=== PATIENT | male | born 1945 | race African-American/Black ===

== ENCOUNTER 2023-04-22 19:17 | Outpatient (RCR) | payer OTHER, SELFPAY | END 2023-04-22 23:59 | disposition home or self-care (01) | LOC: RPT 19:17 | PROVIDERS: ATTENDING PHYSICIAN Family Medicine | DX: M54.2 Cervicalgia (principal); Z73.6 Limitation of activities due to disability | CPT/HCPCS: 97010; 97110; 97112; 97162 ==

== ENCOUNTER 2023-04-23 03:08 | Observation (INO) | payer OTHER, SELFPAY ==
[2023-04-22 18:31] VITALS: BP 97/81
[2023-04-22 18:57] LABS: % Basophils 0.6 % (0-2); % Eosinophils 2.3 % (0-6); % Lymphocytes 42.5 % (20.5-51.1); % Monocytes 8.2 % (1.7-9.3); % Neutrophils 46.4 % (42.2-75.2); Absolute Eosinophils 0.1 10^3/uL (0-0.7); Absolute Lymphocytes 2.2 10^3/uL (1.2-3.4); Absolute Monocytes 0.4 10^3/uL (0.1-0.6); Absolute Neutrophils 2.4 10^3/uL (1.4-6.5); Hematocrit 38.8 % (39.0-52.0); Hemoglobin 12.3 g/dL (13.0-18.0); Mean Corp Hgb Conc. 31.7 g/dL (33.0-37.0); Mean Corpuscular Hgb 24.9 pg (27.0-31.0); Mean Corpuscular Volume 78.5 fL (80.0-94.0); Mean Platelet Volume 9.6 fL (7.4-10.4); Nucleated Red Blood Cells % 0 % (-); Platelet Count 161 10^3/uL (130-400); Red Blood Cell Count 4.94 10^6/uL (4.70-6.10); Red Cell Dist. Width 14.6 % (11.5-14.5); White Blood Cell Count 5.1 10^3/uL (4.8-10.8)
[2023-04-22 19:09] LABS: ALT (SGPT) 18 U/L (0-50); AST (SGOT) 30 U/L (17-59); Albumin 4.2 g/dl (3.5-5.0); Alkaline Phosphatase 69 U/L (38-126); Blood Urea Nitrogen 16 mg/dl (9-20); Calcium 10.1 mg/dl (8.4-10.2); Carbon Dioxide 31 mmol/L (22-30); Chloride 100 mmol/L (98-107); Glucose 82 mg/dl (70-99); Potassium 5.3 mmol/L (3.5-5.1); Sodium 140 mmol/L (135-145); Total Protein 7.8 g/dl (6.3-8.2); eGFR > 60.00
[2023-04-22 19:20] LABS: Troponin I 0.016 ng/ml
[2023-04-22 20:44] VITALS: BP 135/74
[2023-04-22 21:00] VITALS: BP 111/70
[2023-04-22 22:00] VITALS: BP 115/54
[2023-04-22 22:36] LABS: Troponin I 0.015 ng/ml
--- NOTE | 2023-04-22 22:53 | ED.GENMED ---
History of Present Illness
General
Chief Complaint: Chest Pain
Source: patient
Exam Limitations: none
Time Seen by Provider: 04/22/23 20:42
Nursing documentation reviewed up to this point in time: agreed with
Travel History
Have you had any contact with someone who has COVID-19?: No
Do you have any symptoms of coronavirus? Fever > 100 degrees, chills, cough, shortness of breath, sore throat, loss of taste or smell, muscle aches, or headache?: No
History of Present Illness
History of Present Illness:
77-year-old male with a past medical history of CAD status post CABG, diabetes who presents to the emergency department for evaluation of chest pain. Patient has been having left-sided neck pain for quite some time and has been doing physical
therapy for this. He was sent over today after an episode of chest pain and dizziness at physical therapy. He says that he has been having some exertional pressure in his chest for quite some time but may be slightly more often over the past week.
He is currently chest pain-free in the emergency room only complaint here is his chronic left neck pain. He denies any shortness of breath. Denies any palpitations. Denies any nausea, vomiting, diaphoresis. He denies any other complaints. He
says that his bypass surgery was a little over a year ago was performed in [place] when he was living there; he says that he has moved here and is supposed to follow-up with [facility] cardiology but has not yet seen a assembler fishing floats.
Review of Systems
Review of Systems
All Other Systems: ROS reviewed and negative except as documented in HPI and ROS
Constitutional: Denies fever or chills
EENT: Denies sore throat or runny nose
Respiratory: Denies cough or trouble breathing
Cardiac: Reports chest pain; Denies diaphoresis or palpitations
ABD/GI: Denies abdominal pain, nausea, vomiting or diarrhea
: Denies flank pain
Musculoskeletal: Reports neck pain; Denies back pain
Neurological: Reports dizzy; Denies headache, weakness or numbness
Phy Exam
Physical Exam
Physical Exam:
General: Awake, alert; no acute distress
Head: Normocephalic, atraumatic
Eyes: Conjunctiva normal, sclera anicteric
Throat: Airway intact, handling secretions
Neck: Trachea midline, supple without meningismus
Lungs: Clear to auscultation bilaterally, no wheezing, rales, rhonchi
Heart: Regular rate and rhythm, no murmurs, gallops, or rubs; midline chest scar from prior surgery
Abd: Soft, non distended, nontender
Neuro: Cranial nerves grossly intact, speech fluid
Skin: no rash
Extremities: No edema in extremities, equal pulses in all extremities
Scores
Heart Failure Risk
Heart Failure Risk Score: Not Applicable
Heart Score for Chest Pain Patients
STEMI patient?: No
History: Moderately Suspicious
ECG: Nonspecific Repolarization
Age: >/= 65 years
Risk Factors: >/= 3 Risk Factors or History of CAD
Troponin: </= Normal Limit
Heart Score for Chest Pain Patients: 6
Heart Score Risk: 20.3% MACE over next 6 weeks
Withdrawal Assessment of Alcohol
Withdrawal Assessment Completed?: Not applicable
Course
Orders/Labs/Results
Orders:
Orders
04/22/23 18:24
ECG [Electrocardiogram (*1)] Urgent
Reason for Study: Chest Pain
EKG- Treatment ONCE
04/22/23 18:50
Complete Blood Count/With Diff Urgent
Comprehensive Metabolic Panel Urgent
Troponin I Urgent
04/22/23 22:00
Troponin I Urgent
04/22/23 22:47
CR Chest - 2 Views Urgent
Comment:
Reason For Exam: chest pain
Abnormal Lab Results
04/22/23
18:50
Hgb 12.3 L g/dL
(13.0-18.0)
Hct 38.8 L %
(39.0-52.0)
MCV 78.5 L fL
(80.0-94.0)
MCH 24.9 L pg
(27.0-31.0)
MCHC 31.7 L g/dL
(33.0-37.0)
RDW 14.6 H %
(11.5-14.5)
Potassium 5.3 H mmol/L
(3.5-5.1)
Carbon Dioxide 31 H mmol/L
(22-30)
04/22/23 18:50
04/22/23 18:50
Vital Signs
Initial and Last Documented VS:
Initial Vital Signs
Temp Pulse Resp BP Pulse Ox
36.8 C 79 20 97/81 98
04/22/23 18:31 04/22/23 18:31 04/22/23 18:31 04/22/23 18:31 04/22/23 18:31
Last Documented Vital Signs
Temp Pulse Resp BP Pulse Ox
36.8 C 79 20 97/81 99
04/22/23 18:31 04/22/23 18:31 04/22/23 18:31 04/22/23 18:31 04/22/23 20:39
MDM/Problems Addressed
Differential Diagnosis Includes:
ACS/angina, cardiac dysrhythmia, costochondritis, less likely pneumonia or pneumothorax based on clinical history and exam
MDM/Problems Addressed:
77-year-old male with history as documented presents for evaluation of chest pain PT this evening that has since resolved. Was associated with some dizziness. He does state he has been having some exertional chest discomfort for quite some time
slightly worse over the past week. Only other complaint here is chronic left neck pain. Soft blood pressure 97/81 on vital signs otherwise normal. EKG shows no STEMI. Plan to place an IV check labs including a CBC and a CMP, serial troponins.
Will check a chest x-ray. Monitor closely reassess after the above.
Labs reviewed: CBC unremarkable, CMP shows marginal hyperkalemia. Troponins negative x 2. Patient remains well-appearing with reassuring vitals. HEART score 6. Case discussed with cardiology who recommended admission to hospital service they will
consult on patient in the morning. Case discussed with hospitalist for admission.
Chronic conditions affecting care:
History of CAD
*Radiology
Radiology exam reviewed: preliminary read by ED provider and radiology read reviewed
*Pulse Oximetry
Patient hypoxic: no
*EKG
Interpreted by ED Provider?: Yes
Heart Rate: 76
Rate: normal
Rhythm: sinus
[place]: left axis deviation
Interval: normal interval
QRS Pattern: right bundle branch block
Ischemia: non-specific ST changes
*Critical Care Note
Total Time (30-74mins, 75-104mins- exclusive of procedures): Not Applicable
Data Reviewed
Source: patient
Patient Management
Discussion with other providers: Hospitalist (Discussed with hospitalist) and Scowman (Discussed with cardiology)
Escalation/DeEscalation of care consider admission/obs:
Admission indicated
ED Attending Note
-
Portions of this chart may have been created with voice recognition software.� Occasional wrong word or��sound alike� substitutions may have occurred due to the inherent limitations of voice recognition software.
Discharge Plan
Departure
Admit to doctor: Charles
Presentation/result/management discussed w/ accepting MD/DO: Hospitalist
Discharge Problem:
Chest pain
Prescriptions:
No Action
clindamycin HCl 300 mg capsule
300 mg PO Q8H 7 Days Qty: 21 0RF
Referrals:
Haris Marie DO [Family Provider] -
Interventions
Interventions:
*Risk Screen - Suicide Last Done: 04/22/23 18:31
*General Assessment Last Done: 04/22/23 18:31
*Neglect/Abuse Screening Last Done: 04/22/23 18:31
ED- Fall Risk Assessment Last Done: 04/22/23 20:39
*ED COVID-19 Vaccine History Last Done: 04/22/23 20:39
ED- Cardiac Assessment Last Done: 04/22/23 20:39
[2023-04-22 23:00] VITALS: BP 127/66
[2023-04-23] VITALS (13 sets, daily range): BP systolic 102–152; BP diastolic 54–91
[2023-04-23] MEDS: LOW STRENGTH ASPIRIN 324 MG PO (00:01)
--- NOTE | 2023-04-23 02:25 | HPS.HSE ---
Addendum entered and electronically signed by Jorge Soto DO 04/23/23 03:35:
Exact nature of patient's open heart surgery is unclear. From CXR, it appears he had a L atrial appendage closure device placed.
Unknown if he also had bypass grafting done at that time.
When patient is asked what surgery he had performed, he simply gestures to / indicates his midline sternotomy and can provide no other details.
Original Note:
Family Physician
-
Family Physician: Haris Marie,
Chief Complaint
-
Irregular heart beat
History of Present Illness
Patient is a 77y M with PMH significant for ASCVD, DM-II and hypertension who presents to ED for evaluation of irregular heart beat. Patient states that he was at physical therapy earlier today (for left rotator cuff pathology) and was advised
that his heart rate was irregular. He was told he should present to the ED for evaluation.
Patient has prior history of CAD and is s/p open heart surgery (not clear what was done) April 2022 in [place].
Patient admits to some chest discomfort that is worse with certain movement. He indicates that this seems related to 'growth' at the site of his prior surgery.
He denies any palpitations, cough, fevers / chills, SOB, etc.
He is currently resting comfortably.
He has not yet seen a Avionics Systems Engineer in the [place] area since relocating.
Medical History
Past Medical History
Past Medical History: Reports Other
Additional Past Medical History:
ASCVD
DM-II
Hypertension
Past Surgical History: Reports Other
Additional Past Surgical History:
Midline Sternotomy / CABG?
Right CHRISTIANA
Left TKA
Social History
Tobacco: Non-smoker
Alcohol: None
Drug: None
Family History
Family History: Not pertinent
Allergies / Home Medications
Allergies reflects when Allergies were last updated in [facility].
Home Medications with original date entered in [facility]
Allergy/Medication List:
Allergies
Allergy/AdvReac Type Severity Reaction Status Date / Time
cefuroxime [From Ceftin] Allergy Unknown Verified 04/22/23 18:31
Home Medications
aspirin 81 mg tablet,delayed release 81 mg PO DAILY 04/23/23
insulin glargine 100 unit/mL subcutaneous solution (Lantus U-100 Insulin) 15 unit SC DAILY 04/23/23
losartan 50 mg tablet 40 mg PO DAILY 04/23/23
metformin 1,000 mg tablet 1,000 mg PO BID 04/23/23
metoprolol tartrate 25 mg tablet 25 mg PO BID 04/23/23
sitagliptin phosphate 100 mg tablet (Januvia) 100 mg PO DAILY 04/23/23
Review of Systems
-
History Source: Patient
A 12 point ROS was completed and negative except as noted: Yes
Constitutional: Denies Fever, Fatigue or Chills
EENT: Denies Sore Throat
Respiratory: Reports Trouble Breathing (occasionally with exertion); Denies Cough
Cardiac: Reports Chest Pain (discomfort with movement at sternotomy site.); Denies Palpitations or Syncope
Abdomen/GI: Denies Abdominal Pain, Nausea, Vomiting or Diarrhea
: Denies Dysuria, Frequency or Flank Pain
Musculoskeletal: Reports Joint Pain (L shoulder pain / decreased ROM.); Denies Edema
Neurological: Denies Dizzy or Headache
Psych: Denies Depression or Anxiety
Physical Exam
Vital Signs
Vital Signs
Temp Pulse Resp BP Pulse Ox
98.3 F 70 19 119/70 99
04/22/23 18:31 04/23/23 00:15 04/23/23 00:15 04/23/23 00:03 04/23/23 00:15
Physical Exam
General: Other (77y M in no distress.)
HEENT: Moist mucous membranes and PERRLA
Respiratory: Other (Few bibasilar rales. No wheeze/ rhonchi.)
Cardiac: S1/S2 and Regular Rhythm (with ectopy.); No Murmur
GI: Soft, Non Tender, Non Distended and Normal Bowel Sounds
Musculoskeletal: No Clubbing, No Cyanosis and No Edema
Skin: Other (mild keloid formation over midline sternotomy site.)
Neuro: AO x 3
Laboratory Results
-
04/22/23 18:50
04/22/23 18:50
Laboratory Results
Total Bilirubin 1.0 mg/dl (0.2-1.3) 04/22/23 18:50
AST 30 U/L (17-59) 04/22/23 18:50
ALT 18 U/L (0-50) 04/22/23 18:50
Alkaline Phosphatase 69 U/L (38-126) 04/22/23 18:50
Troponin I 0.015 ng/ml 04/22/23 22:00
Impression/Plan
-
A/P: Patient is a 77y M with PMH significant for open heart surgery who presented to ED for evaluation of abnormal heart beat.
Irregular Heart Beat
- Observe overnight for further evaluation and treatment.
- EKG / tele show sinus rhythm with PACs.
- No significant arrhythmia.
- Monitor on tele for any additional abnormality.
- Continue metoprolol.
- Cardiology evaluation in the AM.
ASCVD
Chest Pain
- Patient complains of intermittent chest discomfort / 'pulling' at the sternotomy site which he relates to the formation of a keloid in that area.
- EKG without ischemic changes.
- Troponin is unremarkable x 2 sets thus far.
- Does not seem suspicious for ACS.
- Continue current CV med regimen.
- Check repeat troponin in AM to complete series.
- Cardiology evaluation as noted above.
Benign Hypertension
- Stable. Continue current meds and adjust as needed.
DM-II
- Stable. Continue basal : bolus insulin regimen.
- Hold PO meds acutely.
- Cover with SSI as needed.
- Update A1C.
Left Rotator Cuff Pathology
- Referred to PT as an outpatient.
- Resume treatment upon discharge.
DVT Prophylaxis: Lovenox
Code Status: Full
[2023-04-23 06:39] LABS: Hematocrit 34.4 % (39.0-52.0); Hemoglobin 11.2 g/dL (13.0-18.0); Mean Corp Hgb Conc. 32.6 g/dL (33.0-37.0); Mean Corpuscular Hgb 25.2 pg (27.0-31.0); Mean Corpuscular Volume 77.3 fL (80.0-94.0); Mean Platelet Volume 10.1 fL (7.4-10.4); Platelet Count 144 10^3/uL (130-400); Red Blood Cell Count 4.45 10^6/uL (4.70-6.10); Red Cell Dist. Width 14.6 % (11.5-14.5); White Blood Cell Count 3.5 10^3/uL (4.8-10.8)
[2023-04-23 06:45] LABS: Blood Urea Nitrogen 17 mg/dl (9-20); Carbon Dioxide 32 mmol/L (22-30); Chloride 101 mmol/L (98-107); Glucose 109 mg/dl (70-99); HDL Cholesterol 58 mg/dl; Iron 89 ug/dl (49-181); LDL Cholesterol, Calculated 112 mg/dl; Sodium 137 mmol/L (135-145); Total Cholesterol 189 mg/dl (50-199); Triglyceride 97 mg/dl (10-149); Very Low Density Lipoprotein 19 mg/dl (0-30); eGFR > 60.00
[2023-04-23 06:48] LABS: Troponin I < 0.012 ng/ml
[2023-04-23 06:54] LABS: Percent Saturation 29 % (20-50); Total Iron Binding Capacity 306 ug/dl (261-462)
[2023-04-23 08:12] LABS: Glucose - Point of Care 112 mg/dl (70-99)
--- NOTE | 2023-04-23 08:12 | CON.CAR ---
Consultation
Consultation Request
Date/Time Consultation Requested: Apr 23, 2023 0113
Date/Time Consultation Performed: Apr 23, 2023 0800
Requesting Provider: Hospitalist
Performing Provider: vega rivera
Reason for Consultation: irregular HB
Medical History
-
Chief Complaint: irreg HB
History of Present Illness:
77-year-old male with past medical history of hypertension, CAD status post CABG, hyperlipidemia, and diabetes who is here today for evaluation of irregular heartbeat. He tells me that he was at the physical therapy office and when they got his
vital signs he was noted to have an irregular heartbeat. It appears that they were concerned for atrial fibrillation and they sent him to the emergency room. In the emergency room he was found to have sinus rhythm with frequent PACs. There was
confusion about possible chest pain and troponins have been negative. In further conversation he had a CABG done in [place] and his symptoms at that time were of heartburn. Since his open heart surgery he has not had return of the symptoms.
Additionally, he overall tells me he otherwise feels well and denies any significant symptoms of ischemia, heart failure, or other arrhythmia. He denies any passing out or chest discomfort with exertion. He tells me he lives with his daughter and
. He does have an appointment with Dr. Ulloa on May 18, 2023.
Past Medical History
Past Medical History: Other (hypertension, CAD status post CABG, hyperlipidemia, and diabetes)
Past Surgical History: Other (CABG)
Social History
Tobacco: Non-Smoker
Alcohol: None
Drug: None
Living: With Family
Employment: Retired
Family History
Family History: Reviewed & Not Pertinent
Allergies / Home Medications
Allergy/AdvReac Type Severity Reaction Status Date / Time
cefuroxime [From Ceftin] Allergy Unknown Verified 04/22/23 18:31
Medication Instructions Recorded Confirmed Type
aspirin 81 mg tablet,delayed 81 mg PO DAILY 04/23/23 04/23/23 History
release
insulin glargine 100 unit/mL 15 unit SC DAILY 04/23/23 04/23/23 History
subcutaneous solution (Lantus
U-100 Insulin)
losartan 50 mg tablet 40 mg PO DAILY 04/23/23 04/23/23 History
metformin 1,000 mg tablet 1,000 mg PO BID 04/23/23 04/23/23 History
metoprolol tartrate 25 mg tablet 25 mg PO BID 04/23/23 04/23/23 History
sitagliptin phosphate 100 mg 100 mg PO DAILY 04/23/23 04/23/23 History
tablet (Januvia)
Review of Systems
-
All other systems: Negative unless noted
Physical Exam
Vital Signs
Temp Pulse Resp BP Pulse Ox
98.3 F 72 15 103/54 100
04/22/23 18:31 04/23/23 06:15 04/23/23 06:15 04/23/23 06:00 04/23/23 06:15
Lab Results
04/23/23 06:07
04/23/23 06:07
Troponin I < 0.012 ng/ml 04/23/23 06:07
Physical Exam
General: Well Developed, No Apparent Distress and Comfortable
HEENT: Normocephalic
Respiratory: Clear and Non Labored Respirations
Cardiac: Regular Rhythm and Other (no m/r/g)
GI: Soft
Musculoskeletal: No Cyanosis and No Edema
Skin: Warm and Dry
Neuro: AO x 3
Psych: Calm
Impression / Plan
-
77-year-old male with past medical history of hypertension, CAD status post CABG, hyperlipidemia, and diabetes who is here today for evaluation of irregular heartbeat. He appears to have sinus rhythm with frequent PACs. He otherwise has no
complaints of ischemia, heart failure, or arrhythmia. He overall feels well and when asked about chest pain he points to his scar and what appears to be a keloid on his chest. He otherwise has no symptoms of burning which was associated with his
coronary artery disease in the past. He needs no further testing, but should be started on atorvastatin 40mg at this time. He has follow up with Dr Ulloa on May 18, 2023.
CAD status post CABG unknown targets
-Continue aspirin he should be on atorvastatin 40 mg
-Continue metoprolol tartrate 25 twice daily
Hypertension
-Continue losartan and metoprolol
Hyperlipidemia
-Start atorvastatin 40 daily
Diabetes per primary consider SGLT2 inhibitor
Data Reviewed
-
EKG: Tracing Personally Visualized and interpreted and Discussed with Patient
Labs: Labs Reviewed by me
[2023-04-23] MEDS: LOPRESSOR 25 MG PO (08:40)
[2023-04-23] MEDS: ASPIR LOW (ENTERIC COATED) 81 MG PO (08:40)
[2023-04-23] MEDS: JANUVIA 100 MG PO (08:42)
[2023-04-23] MEDS: COZAAR 50 MG PO (08:47)
--- NOTE | 2023-04-23 09:14 | PHANOTE ---
Addendum entered by German Madsen 04/23/23 09:26:
04/23/2023, med rec [facility], pt.'s daughter states that pt. is also taking Amlodipine 10 mg daily but this med. in not in pt.'s pharmacy fill data and pt. has no [facility] records to confirm.
Original Note:
04/23/2023, med rec [facility], spoke to pt. and pt.'s daughter to compile pt.'s home med. list; pt. states to be taking Losartan daily but does not know the strength; called pt.'s pharmacy and they state that pt. never picked his Losartan up with
direction of taking half of a Losartan 25 mg (12.5 mg) daily. Pt.'s pharmacy states that this med. has been on hold since October 2022.
[2023-04-23 09:32] LABS: Glycohemoglobin (HgbA1c) 7.8 % (4.0-5.6)
--- NOTE | 2023-04-23 12:34 | W.PN.HOSP.TC ---
Addendum entered and electronically signed by Boubacar Green MD 04/24/23 17:13:
[id number]
Original Note:
Today's Communication/Plan
-
add statin
f/u pcp, cards, cardiothoracic surgery outpatient
Assessment / Plan
Assessment / Plan
Physical Exam
General: Other (77y M in no distress.)
HEENT: Moist mucous membranes and PERRLA
Respiratory: Other (Few bibasilar rales.� No wheeze/ rhonchi.)
Cardiac: S1/S2 and Regular Rhythm (with ectopy.); No Murmur
GI: Soft, Non Tender, Non Distended and Normal Bowel Sounds
Musculoskeletal: No Clubbing, No Cyanosis and No Edema
Skin: Other (mild keloid formation over midline sternotomy site.)
Neuro: AO x 3
A/P:� Patient is a 77y M with PMH significant for open heart surgery who presented to ED for evaluation of abnormal heart beat.
Irregular Heart Beat
-Frequent PACs
-F/u cardiology outpatient
-Cards consulted
CAD s/p CABG
Chest Pain
-chest pain most likely sternal pain from sternotomy site
-Cont asa, BB
-Add statin
�- Cardiology evaluation as noted above.
Benign Hypertension
�- Stable.� Continue current meds and adjust as needed.
DM-II
�- SGLT2i as per cards and pcp outpatient
Left Rotator Cuff Pathology
�- Referred to PT as an outpatient.
�- Resume treatment upon discharge.
DVT Prophylaxis:� Lovenox
Code Status:� Full
More than 30 minutes spent in discharge including
Final examination of the patient
Summarizing hospital stay
Instructions for continuing care to all relevant caregivers
Preparation of discharge records, prescriptions, and referral forms
Total time spent (35 in minutes):
Anticipated Discharge: Today
Subjective/Interval History
-
Date of Service: April 23, 2023
no changes, acute events
Objective Data
-
Labs:
Laboratory Results
04/23/23
06:07
WBC 3.5 L
Hgb 11.2 L
Hct 34.4 L
Plt Count 144
Sodium 137
Potassium 4.0
Chloride 101
Carbon Dioxide 32 H
BUN 17
Creatinine 0.6 L
Glucose 109 H
Calcium 9.0
Vital Signs:
Vital Signs
Temp Pulse Resp BP Pulse Ox
98.1 F 83 18 147/85 98
04/23/23 08:39 04/23/23 08:39 04/23/23 08:39 04/23/23 08:39 04/23/23 09:58
Review of Systems
-
History Source: Patient
All other systems: Not reviewed unless documented
Data Reviewed
-
Diagnostic Radiology: Image personally visualized and interpreted and Report Reviewed by me
Labs: Labs Reviewed by me
--- NOTE | 2023-04-23 12:39 | W.DS.TRANS ---
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
-
Discharge Instructions:
Discharge Diagnosis/Procedures Frequent PACs
Diet Low Cholesterol,Low Fat
Activity As tolerated
Instructions:
Stand-Alone Forms:
Changes to Home Medications: Yes
Discharge Medications:
DC Medications w/original date entered in [facility]
amlodipine 10 mg tablet 10 mg PO DAILY #0 tabs 04/23/23
aspirin 81 mg tablet,delayed release 81 mg PO DAILY 04/23/23
insulin glargine 100 unit/mL (3 mL) subcutaneous pen (Lantus Solostar U-100 Insulin) 15 unit SC HS 04/23/23
losartan 25 mg tablet 12.5 - 25 mg PO DAILY 04/23/23
losartan 50 mg tablet 50 mg PO DAILY #0 tabs 04/23/23
metformin 1,000 mg tablet 1,000 mg PO DAILY 04/23/23
metoprolol tartrate 25 mg tablet 25 mg PO .*SEE BELOW 04/23/23
rosuvastatin 40 mg tablet 40 mg PO DAILY 04/23/23
sitagliptin phosphate 100 mg tablet (Januvia) 100 mg PO DAILY 04/23/23
tamsulosin 0.4 mg capsule 0.4 mg PO QPM 04/23/23
Home Medication Changes
rosuvastatin 40 mg tablet 40 mg PO DAILY 04/23/23
Pending Results: No
== END 2023-04-23 13:47 | disposition home or self-care (01) ==
LOC: ED 03:08
PROVIDERS: Student in an Organized Health Care Education/Training Program; ADMITTING PHYSICIAN Hospitalist; ATTENDING PHYSICIAN Internal Medicine; EMERGENCY PHYSICIAN Emergency Medicine; FAMILY PHYSICIAN Family Medicine; OTHER PHYSICIAN Internal Medicine Cardiovascular Disease
DX: I49.1 Atrial premature depolarization (principal); R07.9 Chest pain, unspecified; I25.119 Atherosclerotic heart disease of native coronary artery with unspecified angina pectoris; E11.9 Type 2 diabetes mellitus without complications; M54.2 Cervicalgia; E78.5 Hyperlipidemia, unspecified; R42 Dizziness and giddiness; E87.5 Hyperkalemia; I10 Essential (primary) hypertension; Z79.82 Long term (current) use of aspirin; Z79.4 Long term (current) use of insulin; Z79.84 Long term (current) use of oral hypoglycemic drugs; Z95.1 Presence of aortocoronary bypass graft
CPT/HCPCS: 71046; 80048; 80053; 80061; 82962; 83036; 83540; 83550; 84484; 85025; 85027; 93005; 99285; G0378

== ENCOUNTER → 2023-05-27 06:23 | Day surgery (SDC) | payer OTHER, SELFPAY ==
[2023-05-27 08:12] LABS: Glucose - Point of Care 112 mg/dl (70-99)
== END ==
LOC: GI 06:23
PROVIDERS: ATTENDING PHYSICIAN Surgery
DX: Z12.11 Encounter for screening for malignant neoplasm of colon (principal); K64.9 Unspecified hemorrhoids
CPT/HCPCS: 45378; 82962

== ENCOUNTER → 2023-06-10 16:53 | Outpatient (REF) | payer OTHER, SELFPAY | LOC: RCS 16:53 | PROVIDERS: ATTENDING PHYSICIAN Internal Medicine; FAMILY PHYSICIAN Family Medicine | DX: I25.810 Atherosclerosis of coronary artery bypass graft(s) without angina pectoris (principal) | CPT/HCPCS: 93306 ==

== ENCOUNTER → 2023-09-14 11:08 | Outpatient (REF) | payer OTHER, SELFPAY | LOC: RAD 11:08 | PROVIDERS: ATTENDING PHYSICIAN Family Medicine | DX: M54.2 Cervicalgia (principal); M25.512 Pain in left shoulder | CPT/HCPCS: 72052; 73030 ==

== ENCOUNTER 2023-09-23 09:13 | Outpatient (RCR) | payer OTHER, SELFPAY | END 2023-09-23 23:59 | disposition home or self-care (01) | LOC: RPT 09:13 | PROVIDERS: ATTENDING PHYSICIAN Family Medicine | DX: M54.2 Cervicalgia (principal); M25.512 Pain in left shoulder | CPT/HCPCS: 97010; 97110; 97140; 97162 ==

== ENCOUNTER 2023-10-14 09:18 | Outpatient (RCR) | payer OTHER, SELFPAY | END 2023-10-14 12:39 | disposition home or self-care (01) | LOC: RPT 09:18 | PROVIDERS: ATTENDING PHYSICIAN Family Medicine | DX: M54.2 Cervicalgia (principal); M25.512 Pain in left shoulder; Z73.6 Limitation of activities due to disability | CPT/HCPCS: 97010; 97110; 97140 ==

== ENCOUNTER 2023-12-19 12:40 | Emergency (ER) | payer OTHER, SELFPAY ==
[2023-12-19 12:45] VITALS: BP 143/79
[2023-12-19 13:02] LABS: Glucose - Point of Care 219 mg/dl (70-99)
[2023-12-19 14:03] VITALS: BP 126/69
[2023-12-19 14:24] LABS: % Basophils 0.6 % (0-2); % Eosinophils 2.3 % (0-6); % Immature Granulocytes 0.2 % (0-0.5); % Lymphocytes 33.8 % (20.5-51.1); % Monocytes 8.1 % (1.7-9.3); Absolute Eosinophils 0.1 10^3/uL (0-0.7); Absolute Lymphocytes 1.6 10^3/uL (1.2-3.4); Absolute Monocytes 0.4 10^3/uL (0.1-0.6); Absolute Neutrophils 2.7 10^3/uL (1.4-6.5); Hematocrit 39.2 % (39.0-52.0); Hemoglobin 12.6 g/dL (13.0-18.0); Mean Corp Hgb Conc. 32.1 g/dL (33.0-37.0); Mean Corpuscular Volume 77.6 fL (80.0-94.0); Mean Platelet Volume 9.5 fL (7.4-10.4); Nucleated Red Blood Cells % 0 % (-); Platelet Count 164 10^3/uL (130-400); Red Blood Cell Count 5.05 10^6/uL (4.70-6.10); Red Cell Dist. Width 14.2 % (11.5-14.5); White Blood Cell Count 4.8 10^3/uL (4.8-10.8)
[2023-12-19 14:39] LABS: ALT (SGPT) 25 U/L (0-50); AST (SGOT) 34 U/L (17-59); Albumin 4.8 g/dl (3.5-5.0); Alkaline Phosphatase 49 U/L (38-126); Blood Urea Nitrogen 17 mg/dl (9-20); Calcium 9.9 mg/dl (8.4-10.2); Carbon Dioxide 33 mmol/L (22-30); Chloride 100 mmol/L (98-107); Glucose 158 mg/dl (70-99); Potassium 4.3 mmol/L (3.5-5.1); Sodium 142 mmol/L (135-145); Total Protein 7.7 g/dl (6.3-8.2); eGFR > 60.00
[2023-12-19 14:51] LABS: NT-proBNP 313 pg/ml; Troponin I 0.022 ng/ml
[2023-12-19 15:00] VITALS: BP 95/79
--- NOTE | 2023-12-19 16:41 | ED.GENMED ---
History of Present Illness
General
Chief Complaint: Musculo-Skeletal Complaint
Source: patient
Exam Limitations: none
Time Seen by Provider: 12/19/23 15:05
Nursing documentation reviewed up to this point in time: agreed with
History of Present Illness
History of Present Illness:
Patient presents to emergency department secondary to 2 separate complaints. 1, patient reports intermittent left upper arm pain ongoing for months, which he describes as stabbing periodically. 2, patient's main presentation and complaint, which
is fluctuation in his blood sugar, noted by his glucometer, which was recently given to him by his primary care physician. Patient has questions about how the glucometer is being used, but his primary care physician referred him to ED for further
evaluation. Otherwise, patient has no additional complaints. Denies chest pain, shortness of breath, nausea, vomiting, or diarrhea. Denies recent illness. Denies fever or chills. Denies recent change in medications or diet.
Review of Systems
Review of Systems
Allergies reviewed?: Yes
All Other Systems: ROS reviewed and negative except as documented in HPI and ROS
Constitutional: Reports no symptoms
Respiratory: Reports no symptoms
Cardiac: Reports no symptoms
ABD/GI: Reports no symptoms
: Reports no symptoms
Musculoskeletal: Reports no symptoms
Skin: Reports no symptoms
Neurological: Reports no symptoms
Phy Exam
Physical Exam
Physical Exam:
Physical Exam
General: no apparent distress, not acutely ill. afebrile.
Head: nc/at. eomi
Neck: supple. no meningeal signs.
Heart: s1/s2 regular rate and rhythm, no murmur. equal radial pulses.
Lungs: no acute respiratory distress. clear bilaterally
Abdomen: normal bowel sounds. not tender.
Neuro: alert and oriented. no focal neurological deficits
Skin: no rash
Psychiatric: well kept. interactive and cooperative
Extremities: no edema. no calf tenderness. LUE - nontender to palpation, no deformity noted.
Course
Orders/Labs/Results
Orders:
Orders
12/19/23 12:50
EKG [Electrocardiogram (*1)] Urgent
Reason for Study: Chest Pain
EKG- Treatment ONCE
12/19/23 14:07
Visual Acuity- Treatment ONCE
12/19/23 14:12
Complete Blood Count/With Diff Urgent
Comprehensive Metabolic Panel Urgent
Pro-BNP [NT-proBNP] Urgent
Troponin I Urgent
Abnormal Lab Results
12/19/23 12/19/23
13:00 14:12
Hgb 12.6 L g/dL
(13.0-18.0)
MCV 77.6 L fL
(80.0-94.0)
MCH 25.0 L pg
(27.0-31.0)
MCHC 32.1 L g/dL
(33.0-37.0)
Carbon Dioxide 33 H mmol/L
(22-30)
Glucose 158 H mg/dl
(70-99)
POC Glucose 219 H mg/dl
(70-99)
12/19/23 14:12
12/19/23 14:12
Vital Signs
Initial and Last Documented VS:
Initial Vital Signs
Temp Pulse Resp BP Pulse Ox
98.3 F 77 16 143/79 98
12/19/23 12:45 12/19/23 12:45 12/19/23 12:45 12/19/23 12:45 12/19/23 12:45
Last Documented Vital Signs
Temp Pulse Resp BP Pulse Ox
98.3 F 67 14 95/79 96
12/19/23 12:45 12/19/23 15:45 12/19/23 15:45 12/19/23 15:00 12/19/23 15:45
MDM/Problems Addressed
MDM/Problems Addressed:
Patient with an unremarkable workup in ED and remains comfortable, without any distress during extended course of observation. Patient states that he already has an appointment with his corporate sales representative in the upcoming weeks, with whom he will
follow-up. Upper extremity intermittent sensation, likely musculoskeletal in etiology. No further workup indicated at this time.
Patient will be given information for life skills educator at [facility], but discussed his fluctuating blood sugar as well as use of the glucometer. Patient expresses understanding at time of discharge.
*Critical Care Note
Total Time (30-74mins, 75-104mins- exclusive of procedures): Not Applicable
ED Attending Note
-
Portions of this chart may have been created with voice recognition software.� Occasional wrong word or��sound alike� substitutions may have occurred due to the inherent limitations of voice recognition software.
Discharge Plan
Departure
Patient Disposition: Home (Routine Discharge)
Date of Disposition: 12/19/23
Time of Disposition: 16:46
Patient with high blood pressure during this ER visit?: Yes
Condition: Good
Discharge Problem:
Arm pain, Hyperglycemia
Instructions: High Blood Sugar, Adult ED, Muscle and bone pain - Discharge instructions
Prescriptions:
No Action
aspirin 81 mg Tablet,Delayed Release (Dr/Ec)
81 mg PO DAILY
metformin 1,000 mg Tablet
1,000 mg PO DAILY
metoprolol tartrate 25 mg Tablet
25 mg PO .*SEE BELOW
Patient Comments:
04/23/2023, pt. unsure if he takes this med. once or twice a day; this med. is prescribed to be taken BID.
Januvia 100 mg Tablet
100 mg PO DAILY
tamsulosin 0.4 mg Capsule
0.4 mg PO QPM
rosuvastatin 40 mg Tablet
40 mg PO DAILY
insulin glargine [Lantus Solostar U-100 Insulin] 100 unit/mL (3 mL) Insulin Pen
15 unit SC HS
losartan 25 mg Tablet
12.5 - 25 mg PO DAILY
Patient Comments:
04/23/2023, last filled on 08/03/2022 for 30 tablets.
losartan 50 mg Tablet
50 mg PO DAILY Qty: 0 0RF
amlodipine 10 mg Tablet
10 mg PO DAILY Qty: 0 0RF
Patient Comments:
04/23/2023, per daughter, pt. takes this med. daily; however, I'm unable to find this med. in pharmacy fill data and pt. has no [facility] records.
Rx Instructions:
take only if was taking prior
Referrals:
Haris Marie DO [Family Provider] -
Nidia Crabtree NP [Specified Professional Personl] -
Activity Restrictions/Additional Instructions:
As discussed, please follow-up with your primary care physician, as well as referred life skills educator for further evaluation and treatment.
Interventions
Interventions:
*Risk Screen - Suicide Last Done: 12/19/23 12:45
*General Assessment Last Done: 12/19/23 12:45
*Neglect/Abuse Screening Last Done: 12/19/23 12:45
ED- Fall Risk Assessment Last Done: 12/19/23 16:56
*ED COVID-19 Vaccine History Last Done: 12/19/23 13:52
*Nursing Disposition Last Done: 12/19/23 16:56
ED-Musculoskeletal Assessment Last Done: 12/19/23 14:15
Discharge Date and Time
Discharge Date/Time: 12/19/23 17:00
Print Language: TAJIK
== END 2023-12-19 17:00 | disposition home or self-care (01) ==
LOC: EMR 12:40
PROVIDERS: Emergency Medicine; EMERGENCY PHYSICIAN Emergency Medicine; FAMILY PHYSICIAN Family Medicine
DX: M79.622 Pain in left upper arm (principal); E11.65 Type 2 diabetes mellitus with hyperglycemia; Z79.84 Long term (current) use of oral hypoglycemic drugs
CPT/HCPCS: 99284; 80053; 82962; 83880; 84484; 85025; 93005

== ENCOUNTER → 2023-12-30 10:48 | Outpatient (REF) | payer OTHER, SELFPAY ==
--- NOTE | 2023-12-30 12:24 | PN.DE ---
Diabetes Education
- -
12/30/2023 Diabetes Education
Patient was recently in Emergency Department, 12/21 for 2 complaints: #1 pain in upper arm for months, #2 his main complaint was fluctuating blood sugars noted by his glucose monitor (CGM). At that time he was referred to diabetes education as he
had questions about his diabetes. Patient is unsure of what he needs. He is somewhat difficult to understand but is able to get his point across. He brought a bag of medications. For his diabetes he is prescribed 15 units of lantus @ [facility]
100 mg daily, metformin 1000 mg BID. His CGM shows a glucose of 357 at the time of our visit. He is frustrated as he does not know why this is happening. I did discuss with him what he had eaten for breakfast, he states rice beans and vegetables.
Since he does have a primary doctor, Haris Marie, I suggested he speak with Dr. Marie about the high glucose after meals. He stated: Just call him now so we can discuss it.
I did call the office and spoke to Lanny the nurse at Dr. Mauro office. She was able to review the chart and states patient A1C has gone from 7.5 to 8.2%. He was instructed by the doctor to have nutrition counseling. The nurse also stated
that Dr. Mauro note indicates he would consider Jardiance of Ozempic for patient, whichever he prefers. We discussed it over the phone with the nurse and he chose Ozempic once per week.
I reviewed with patient how to navigate the CGM to see his reports. For past 7 days 9% of the time is reported as very high, 27% high, 64% in range, NO low blood sugars. I also assessed the range in the set up was 70 to 250. I did change the
upper limit to 200.
I have asked Brie Francois RD to call patient to set up an individual appointment for nutrition counseling. Patient will wait to hear from Dr. Marie or Lanny the nurse regarding starting Ozempic.
Patient was very appreciative of learning how to navigate the CGM.
== END ==
LOC: DES 10:48
PROVIDERS: ATTENDING PHYSICIAN Family Medicine
DX: E11.65 Type 2 diabetes mellitus with hyperglycemia (principal)
CPT/HCPCS: 99078

== ENCOUNTER → 2024-01-23 10:40 | Outpatient (REF) | payer OTHER, SELFPAY | LOC: RCS 10:40 | PROVIDERS: ATTENDING PHYSICIAN Internal Medicine | DX: I49.1 Atrial premature depolarization (principal) | CPT/HCPCS: 93225; 93226 ==

== ENCOUNTER → 2024-03-01 07:43 | Outpatient (REF) | payer OTHER, SELFPAY | LOC: DHCBC/DCA 07:43 | PROVIDERS: ATTENDING PHYSICIAN Internal Medicine; FAMILY PHYSICIAN Family Medicine | DX: R00.2 Palpitations (principal); I45.10 Unspecified right bundle-branch block; I49.1 Atrial premature depolarization; I25.810 Atherosclerosis of coronary artery bypass graft(s) without angina pectoris; R09.89 Other specified symptoms and signs involving the circulatory and respiratory systems; E66.3 Overweight | CPT/HCPCS: 78452; 93017; A9500; J2785 ==

== ENCOUNTER 2024-03-08 06:39 | Day surgery (SDC) | payer OTHER, SELFPAY ==
[2024-02-18 10:07] VITALS: BMI 25.3
[2024-02-18 10:43] LABS: % Basophils 0.6 % (0-2); % Eosinophils 0.6 % (0-6); % Immature Granulocytes 0.2 % (0-0.5); % Lymphocytes 21.6 % (20.5-51.1); % Monocytes 4.8 % (1.7-9.3); % Neutrophils 72.2 % (42.2-75.2); Absolute Lymphocytes 1.2 10^3/uL (1.2-3.4); Absolute Monocytes 0.3 10^3/uL (0.1-0.6); Absolute Neutrophils 3.9 10^3/uL (1.4-6.5); Hematocrit 39.4 % (39.0-52.0); Hemoglobin 12.3 g/dL (13.0-18.0); Mean Corp Hgb Conc. 31.2 g/dL (33.0-37.0); Mean Corpuscular Hgb 25.4 pg (27.0-31.0); Mean Corpuscular Volume 81.2 fL (80.0-94.0); Mean Platelet Volume 10.3 fL (7.4-10.4); Nucleated Red Blood Cells % 0 % (-); Platelet Count 170 10^3/uL (130-400); Red Blood Cell Count 4.85 10^6/uL (4.70-6.10); Red Cell Dist. Width 14.5 % (11.5-14.5); White Blood Cell Count 5.4 10^3/uL (4.8-10.8)
[2024-02-18 11:03] LABS: ALT (SGPT) 31 U/L (0-50); AST (SGOT) 43 U/L (17-59); Albumin 4.4 g/dl (3.5-5.0); Alkaline Phosphatase 64 U/L (38-126); Blood Urea Nitrogen 19 mg/dl (9-20); Calcium 9.3 mg/dl (8.4-10.2); Carbon Dioxide 30 mmol/L (22-30); Chloride 97 mmol/L (98-107); Estimated Creatinine Clearance 66 ml/min; Glucose 208 mg/dl (70-99); Potassium 4.4 mmol/L (3.5-5.1); Sodium 135 mmol/L (135-145); Total Bilirubin 0.9 mg/dl (0.2-1.3); Total Protein 7.2 g/dl (6.3-8.2); eGFR > 60.00
--- NOTE | 2024-02-18 11:09 | HPS.HSE ---
Family Physician
-
Family Physician: Haris Marie, DO
Chief Complaint
-
Nonsustained ventricular tachycardia.
History of Present Illness
The patient is a 78 year old male presenting today with a history of heart palpitations. His primarily language is Igbo but he does speak some Singaporean. He is accompanied by his daughter Sara for further translation today. He reports
that he has been feeling random episodes of palpitations recently and that his heart rate can be as high as 200 beats per minute. He was previously diagnosed with PACs and has been compliant with Metoprolol Tartrate for pharmacological therapy. Dose
adjustments of his beta marii have been limited due to labile hypertension. The patient wore a CAM monitor for 2 weeks starting 01/14/2024. His CAM revealed 99 episodes of atrial tachycardia, at an average of 204 beats per minute and up to 238
beats per minute, as well as 2 episodes of ventricular tachycardia at an average of 158 beats per minute and up to 233 beats per minute. Given these critical findings, it is recommended he proceed with an ICD implant at this time. He denies any
current complaints today such as chest pain, shortness of breath, nausea, vomiting, diarrhea, lightheadedness, dizziness, cough, sore throat, or fever.
Medical History
Past Medical History
Past Medical History: Reports Other
Additional Past Medical History:
1. Nonsustained ventricular tachycardia.
2. Atrial tachycardia.
3. Right bundle branch block.
4. Left anterior fascicular block.
5. PACs.
6. Palpitations.
7. Labile hypertension.
8. Hyperlipidemia.
9. Coronary artery disease, status post CABG 2022; on Aspirin.
10. Insulin dependent diabetes.
11. Irritable bowel syndrome.
12. Hemorrhoids with history of rectal bleeding.
13. Multilevel degenerative disc disease.
14. Osteoarthritis, status post left total knee arthroplasty 2013.
15. Right hip fracture, status post right total hip arthroplasty 2011.
16. Left rotator cuff arthropathy, treated with PT.
17. BPH.
18. Chronic anemia.
19. Remote history of tobacco abuse.
Past Surgical History: Reports Other
Additional Past Surgical History:
1. CABG.
2. Right total hip arthroplasty.
3. Left total knee arthroplasty.
4. Colonoscopy.
Social History
Tobacco: Former Smoker (He is a former 1-2 pack per day cigarette smoker who quit tobacco altogether remotely. )
Alcohol: Other (Social. )
Living: Other (He lives with his daughter in a 2 story home. )
Family History
Family History: Not pertinent
Allergies / Home Medications
Allergy/Medication List:
Home medications:
1. Amlodipine 10 mg p.o. daily.
2. Aspirin 81 mg p.o. daily.
3. Zetia 10 mg p.o. daily.
4. Ferrous sulfate 325 mg p.o. daily as needed.
5. Lantus 15 units subcutaneous at bedtime.
6. Januvia 100 mg p.o. daily.
7. Linzess 72 mcg p.o. daily as needed.
8. Losartan 25 mg p.o. daily.
9. Metformin 1000 mg p.o. twice a day.
10. Metoprolol Tartrate 50 mg p.o. twice a day.
11. Rosuvastatin 40 mg p.o. daily.
12. Tamsulosin 0.4 mg p.o. every evening.
Allergies: Ceftin. Penicillin. Sulfa.
Review of Systems
-
A 12 point ROS was completed and negative except as noted: Yes
Physical Exam
Vital Signs
Blood pressure 120/65. Heart rate 80. Respirations 18. Pulse ox 98% on room air.
Height 5 feet, 5 inches. Weight 69 kg. BMI 25.3.
Physical Exam
General: Well Developed, Well Nourished and No Apparent Distress
HEENT: NormoCephalic, Moist mucous membranes, Atraumatic and PERRLA
Respiratory: Clear
Cardiac: Regular Rhythm (with occasional ectopy. )
GI: Soft, Non Tender and Non Distended
Musculoskeletal: Normal Gait & Station
Skin: Warm and Dry
Neuro: AO x 3 and Nonfocal/grossly intact
Laboratory Results
-
02/18/24 10:20
02/18/24 10:20
Laboratory Results
Total Bilirubin 0.9 mg/dl (0.2-1.3) 02/18/24 10:20
AST 43 U/L (17-59) 02/18/24 10:20
ALT 31 U/L (0-50) 02/18/24 10:20
Alkaline Phosphatase 64 U/L (38-126) 02/18/24 10:20
EKG 02/18/2024: Normal sinus rhythm. Right bundle branch block. Left anterior fascicular block. Nonspecific T wave abnormality. Prolonged QT. QT interval <500.
Echocardiogram 06/10/2023: Normal biventricular size and systolic function without regional wall motion abnormality. Estimated LVEF 55-60%. Aortic sclerosis without stenosis. Ectatic proximal ascending aorta: 3.6 cm.
Impression/Plan
-
IMPRESSION/PLAN:
1. Nonsustained ventricular tachycardia: The patient is in need of an ICD implant with Dr. Michael Hollins on 02/25/2024. The benefits and risks of the procedure have been explained to the patient. The patient understands these risks and wishes to
proceed.
[2024-03-08] VITALS (10 sets, daily range): BP systolic 108–138; BP diastolic 59–82; BMI 25.3
[2024-03-08] MEDS: STERILE WATER FOR INJECTION 10 ML IV (07:00)
[2024-03-08] MEDS: AZACTAM 2000 MG IV (07:00)
[2024-03-08] MEDS: VANCOCIN 200 IV (07:23)
[2024-03-08 07:24] LABS: Glucose - Point of Care 134 mg/dl (70-99)
--- NOTE | 2024-03-08 09:50 | ITS.CL.ICD ---
Telephone Switchboard Operator - ICD
Implantable Cardioverter Defibrillator
Procedure Report:
Dual Chamber Implantable Cardioverter Defibrillator Placement:
Mr. 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
placement.
Indications: Tachy Ismael syndrome and ventricular arrhythmia.
Date of the Procedure: 03/08/2024
Pre-Operative Diagnosis: Tachy Ismael syndrome and ventricular arrhythmia..
Post-Operative Diagnosis: Tachy Ismael syndrome and ventricular arrhythmia.
Procedure Performed: DUAL CHAMBER IMPLANTABLE CARDIOVERTER DEFIBRILLATOR IMPLANTATION
Performing Physician:
Michael Hollins MD
Assistants:
EP staff
Anesthesia:
See anesthesia records
Detailed Description of the Procedure:
The patient was identified using hospital identification and informed consent obtained for the procedure. The risks were explained including, but not limited to: Bleeding, infection, arrhythmia, stroke, vascular/cardiac/lung puncture, surgery,
pacemaker dependency/device malfunction. All questions were answered.
The patient was brought to the electrophysiology laboratory in stable condition in fasting state. Continuous electrocardiographic and hemodynamic monitoring was initiated. The initial rhythm was normal sinus.
The procedure site was meticulously prepared with surgical scrub and allowed to dry with no pooling. Sterile draping was applied to cover the procedure site. The image intensifier was draped with sterile bag and positioned over the patient.
The left infraclavicular region was prepped and draped in the usual sterile fashion. Local anesthesia was administered subcutaneously using 1% lidocaine / epinephrine. The left cephalic vein was searched but it was too small for ICD.
A venogram was done and patency and the location of the veins were noted. The axillary vein was accessed using the fluoroscopic guidance using the micro-puncture apparatus and vascular sheath was introduced over the guidewire for lead access. The
guide wire was advanced into the inferior vena cava. The wire was retained and two guide wires were placed in subclavian vein. Using the sheaths, atrial and ventricular leads were placed. These were advanced into the right ventricle and the right
atrium.
The right ventricular lead was secured in position with an active fixation technique at the apical septal location.
The RA lead was attached in the right atrial appendage with active fixation.
There was excellent sensing, pacing, and impedance from the leads, with no diaphragmatic stimulation at 10 V output.�Bovie cautery, antibiotics, and fluoroscopy were used.
The sheath was withdrawn, and the thresholds remained acceptable. A pursestring suture was placed at the entry point of the leads using 2-0 Vicryl sutures. The leads were secured in position at the venous entry site with 2-0 Ethibond sutures. A
pocket was fashioned contiguous to the incision. The electrode terminals were connected to the pulse generator, which was placed into the pocket.
The ICD was secured to the underlying fascia using 2-0 Ethibond. The wound was irrigated thoroughly with antibiotic solution and closed in 3 layers using 2-0 VLoc sutures followed by 2 layers of Biosyn sutures. Steri-Strips and a bandage were
applied externally.�
Procedure End:
The procedure was tolerated well. A bandage was applied to the incision area.
Estimated Blood loss:
5 cc
Fluoro time:
2.7min / 4.6mGy
Specimens Removed:
No cultures and no specimens were obtained. No intraoperative pathology was identified.
Urine output:
None
Packs / Drains/ Tubes:
None
Instrument / Sponge Count Correct:
Yes
Complications of the Procedure:
None
Condition of Patient at Time of Transfer:
Hemodynamically stable with no neurological or vascular compromise.
Device information:�
Generator: [employer] Mobile; Model: [id number]; Serial # [id number]�
Atrial Lead: Medtronic; Model: 5076-52; Serial # [id number]
Measured data in the right atrium was sensing of 1.8 mV, impedance of 361 ohms and threshold of 0.75 V at 0.4ms�
RV Lead: Medtronic; Model: 6935M-62; Serial # [id number]
Measured data in the RV lead was sensing of 7 mV, impedance of 475ohms and threshold of 0.5 V at 0.4ms�
PROGRAMMING PARAMETERS:�
Ismael parameter settings were AAIR <=> DDDR 50-130 bpm. �
����������� Mode switch: On
����������� Paced AV delay: 130 ms
����������� Sensed AV delay: 100 ms
����������� Rate Adaptive A-V Interval: ON
Output parameters:
����������������������� Amplitude (V)������������� Pulse Width (ms)������� Sensitivity (mV)
����������� RA: ����� 3.5 ����������������� 0.4������������������ 0.3
����������� RV:������ 3.5������������������ 0.4������������������ 0.3
Tachy parameter settings:
����������� SVT discrimination: On
����������� AF/AFl: OFF
����������� SVT limit: 260 msec
����������� VT zone:
����������������������� Slow VT: 150-188 bpm --> Monitor
����������������������� VF: > 188 bpm --> Shock x6 (ATP before and during)
�����������
Summary:
Successful implantation of MRI compatible dual chamber Medtronic implantable Cardioverter Defibrillator.�
Results/Recommendations:
-Please follow up CXR�
1. Please provide patient with adequate pain control�
Instructions to be given to patient:�
- Please follow up with [facility] at [address] [place] [address] ([phone]) to get your wound checked within 14 days of your discharge.
- Do not soak incision site until after it is evaluated at cardiology clinic. OK to showers followed by dab dry the area. No baths or swimming until then. Sponge baths are OK.�
- Allow 'steri strips' to fall off on their own�
- Do not lift left elbow above shoulder, particularly with sudden jerking movements, for 1 month�
- Do not lift anything weighing more than 5 pounds with the left arm for 1 month�
- If you notice any fevers, shortness of breath, lightheadedness, chest pain, or worsening swelling in the wound site, please contact the arrhythmia clinic, contact your fabric and textile factory worker, or present to the hospital for evaluation.�
Michael Hollins MD
Electrophysiology
--- NOTE | 2024-03-08 09:57 | W.ICD.CONTRA ---
Addendum entered and electronically signed by LORIE Carmona 03/09/24 08:46:
Pt did have remote TX prior to CABG.
Original Note:
Post ICD/AMBULATORY NURSE-D
-
History of TX?: No
LV Function
Left ventricular function study result?: Ejection Fraction >/= 40%
ACEI/ARB/ARNI
Patient already on ACEI/ARB/ARNI: Yes
Beta-Jostin
Patient already on Beta Jostin: Yes
[2024-03-08 10:10] LABS: Glucose - Point of Care 103 mg/dl (70-99)
--- NOTE | 2024-03-08 10:10 | PTCARENOTE ---
Rec'd report from Josue in the EP lab: Rec'd pt AAOx3 w/no c/o CP or SOB. Pt reporting no pain at new ICD device implantation site; New site w/dressing C/D/I & immobilizer in place as ordered w/no signs or symptoms of bleeding or hematoma. Pt's VS
stable w/HR in the 60's & BP on arrival 124/64. Pt speaks Igbo, but understands some Turkmen & is able to make needs known through [employer] infant teacher & family members at bedside. Pt is SR w/some V-pacing on telemetry monitoring. Pt w/call miller within
reach & plan of care ongoing.
[2024-03-08] MEDS: NOVOLOG FLEXPEN-MODERATE RESISTANCE SC (10:45)
--- NOTE | 2024-03-08 11:31 | CM ---
Chart reviewed. Patient speak and understands some Georgian, main language Igbo. Patient is independent of ADLS, lives with his and daughter in a 2 STH, 2 PEÑA, 0 DME. Plan is for the patient to return home. CM to follow
[2024-03-08 12:37] LABS: Glucose - Point of Care 197 mg/dl (70-99)
[2024-03-08 18:08] LABS: Glucose - Point of Care 234 mg/dl (70-99)
[2024-03-08] MEDS: NOVOLOG FLEXPEN-MODERATE RESISTANCE 3 UNITS SC (18:21)
[2024-03-08] MEDS: JANUVIA 100 MG PO (18:22)
[2024-03-08] MEDS: FLOMAX 0.4 MG PO (18:22)
[2024-03-08] MEDS: GLUCOPHAGE 1000 MG PO (18:22)
[2024-03-08] MEDS: CRESTOR 40 MG PO (18:22)
[2024-03-08] MEDS: TYLENOL 650 MG PO (18:25)
[2024-03-08] MEDS: LOPRESSOR 50 MG PO (19:41)
[2024-03-08 22:16] LABS: Glucose - Point of Care 125 mg/dl (70-99)
[2024-03-08] MEDS: LANTUS 0.15 UNITS SC (22:16)
--- NOTE | 2024-03-08 23:28 | PTCARENOTE ---
Received patient at change of shift. SR on the monitor, HR In the 70s. L chest dressing CDI, L arm immobilizer in place. No complaints from pt at this time, call miller within reach.
[2024-03-09 03:18] VITALS: BP 115/70
[2024-03-09 03:57] LABS: Hematocrit 38.3 % (39.0-52.0); Hemoglobin 12.1 g/dL (13.0-18.0); Mean Corp Hgb Conc. 31.6 g/dL (33.0-37.0); Mean Corpuscular Volume 82.2 fL (80.0-94.0); Mean Platelet Volume 9.6 fL (7.4-10.4); Platelet Count 141 10^3/uL (130-400); Red Blood Cell Count 4.66 10^6/uL (4.70-6.10); Red Cell Dist. Width 14.2 % (11.5-14.5); White Blood Cell Count 5.1 10^3/uL (4.8-10.8)
[2024-03-09 04:16] LABS: Blood Urea Nitrogen 15 mg/dl (9-20); Calcium 9.1 mg/dl (8.4-10.2); Carbon Dioxide 33 mmol/L (22-30); Chloride 99 mmol/L (98-107); Estimated Creatinine Clearance 76 ml/min; Glucose 100 mg/dl (70-99); Magnesium 2.2 mg/dl (1.6-2.3); Potassium 4.3 mmol/L (3.5-5.1); Sodium 138 mmol/L (135-145); eGFR > 60.00
[2024-03-09 07:52] VITALS: BP 105/64
[2024-03-09 07:58] LABS: Glucose - Point of Care 97 mg/dl (70-99)
[2024-03-09] MEDS: NOVOLOG FLEXPEN-MODERATE RESISTANCE SC (08:05)
[2024-03-09] MEDS: ZETIA 10 MG PO (08:27)
[2024-03-09] MEDS: GLUCOPHAGE 1000 MG PO (08:27)
[2024-03-09] MEDS: LOPRESSOR 50 MG PO (08:27)
[2024-03-09] MEDS: TYLENOL 650 MG PO (08:27)
[2024-03-09] MEDS: ASPIR LOW (ENTERIC COATED) 81 MG PO (08:27)
[2024-03-09] MEDS: COZAAR 25 MG PO (08:27)
--- NOTE | 2024-03-09 08:54 | PTCARENOTE ---
Assumed care of pt from prev nsg shift; Pt AAOx3; Pt w/no c/o CP or SOB. Pt reports pain at her PPM insertion site. New PPM site w/dressing C/D/I, but w/new visible swelling around the area. Cardiology SECURITY ALARM TECHNICIAN notified & in to see pt. Pressure dressing
applied & PRN pain medicine administered as ordered. Pt's VS stable w/HR in the 70's & BP 105/64 this AM. Pt is currently SR w/R BBB on telemetry monitoring. Call miller within reach & no addtl needs at this time.
--- NOTE | 2024-03-09 09:25 | W.PN.CARDCBS ---
Addendum entered and electronically signed by Shayne Ulloa MD 03/09/24 09:42:
Patient seen and examined in collaboration with GAS LINE INSTALLER SUPERVISOR; agree with below.
-Patient underwent successful ICD implantation yesterday; clinically stable.
-Stable for discharge to home today on current medication regimen.
-Outpatient follow-up with Cardiology.
Original Note:
Today's Communication / Plan
-
pressure dressing for small HT- leave for 24h and off tomorrow morning
incision check next week
incentive spirometry teaching
home today
Impression / Plan
-
PCP: Haris Marie DO
CDY: Shayne Ulloa MD
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
Now s/p DC ICD implant.
IMPRESSION/PLAN:
Tachy ismael syndrome/SVT, bradycardia, VT, RBBB/LAFB
DC ICD implant, 03/08/24
Left ACW site with mild ht overnight- pressure dressing placed this morning for 24h, aquacel intact
Tele- NSR 70s, w/PVCs, triplets, V/AV pacing
activity limitations reviewed with /pt multiple times
post CXR w/stable lead position, no pneumothorax
some very fine rales at base- no hx HF, diuretics- BP soft and likely would not tolerate
incentive spirometry with teaching, and will do at home over the next week
incision check next week at [facility]
home today after IS teaching
PR/CAD s/p CABG w/MARINA clip (2022, at OSH)
stable and continue aspirin, losartan, metoprolol
HLD- continue high dose rosuvastatin
HTN- soft BP post- low 100s-120
continue meds, no adjustment to BB at this time- re-eval in office
DM- HgbA1C 8.0%- on lantus, januvia
to followup with PCP for managment/insulin adjustment
Progress Note - Track Laborer
Subjective
Date of Service: March 09, 2024
Denies cp/palps/dyspnea
mild pain at site- relieved with tylenol
oob ambulating
Objective
Labs:
03/09/24 03:31
03/09/24 03:31
Labs
Hgb 12.1 g/dL (13.0-18.0) L 03/09/24 03:31
Hct 38.3 % (39.0-52.0) L 03/09/24 03:31
Plt Count 141 10^3/uL (130-400) 03/09/24 03:31
Sodium 138 mmol/L (135-145) 03/09/24 03:31
Potassium 4.3 mmol/L (3.5-5.1) 03/09/24 03:31
BUN 15 mg/dl (9-20) 03/09/24 03:31
Creatinine 0.7 mg/dL (0.7-1.3) 03/09/24 03:31
Glucose 100 mg/dl (70-99) H 03/09/24 03:31
Vital Signs and I&O:
Vital Signs
Temp Pulse Resp BP Pulse Ox
98.7 F 76 18 105/64 97
03/09/24 07:53 03/09/24 08:30 03/09/24 07:53 03/09/24 07:52 03/09/24 07:53
Vital Signs
Temp Pulse Resp BP Pulse Ox
98.7 F 76 18 105/64 97
03/09/24 07:53 03/09/24 08:30 03/09/24 07:53 03/09/24 07:52 03/09/24 07:53
Intake & Output
03/07/24 03/08/24 03/09/24 03/10/24
06:59 06:59 06:59 06:59
Intake Total 1360 / 1360
Balance 1360 / 1360
Physical Exam
Physical Exam
AAOx3, MAEE 06/27
RRR S1 S2 no murmurs
Left ACW w/mild HT, soft but tender to palpation
Fine bibasilar rales noted, L>R, non labored
soft abd, + bs
bilat extremities w/palpable distal pulses, no edema
--- NOTE | 2024-03-09 11:15 | W.DS.TRANS ---
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
-
Discharge Instructions:
Discharge Diagnosis/Procedures ICD implant
Diet Low Cholesterol,Diabetic, Carb Controlled
Driving Restrictions No driving for 1 week
Bathing Restrictions OK to Shower
Wound Care Remove top pressure dressing in AM, leave bottom
dressing on until incision check next week
Instructions:
Stand-Alone Forms: DC Inst - Implanted Device
Changes to Home Medications: No
Discharge Medications:
DC Medications w/original date entered in [employer]
aspirin 81 mg tablet,delayed release 81 mg PO DAILY 04/23/23
insulin glargine 100 unit/mL (3 mL) subcutaneous pen (Lantus Solostar U-100 Insulin) 15 unit SC HS 04/23/23
losartan 25 mg tablet 25 mg PO DAILY 04/23/23
metformin 1,000 mg tablet 1,000 mg PO BID 04/23/23
rosuvastatin 40 mg tablet 40 mg PO QPM 04/23/23
sitagliptin phosphate 100 mg tablet (Januvia) 100 mg PO QPM 04/23/23
tamsulosin 0.4 mg capsule 0.4 mg PO QPM 04/23/23
ezetimibe 10 mg tablet 10 mg PO DAILY 02/16/24
linaclotide 72 mcg capsule (Linzess) 72 mcg PO DAILYPRN PRN helps with bowels 02/16/24
metoprolol tartrate 50 mg tablet 50 mg PO BID 02/16/24
Home Medication Changes
Pending Results: No
--- NOTE | 2024-03-09 12:20 | PTCARENOTE ---
Pt's IV line & telemetry pack D/C'd; Discussed D/C instructions w/pt & pt's spouse. Pt taken out via wheelchair w/spouse driving him home w/personal belongings incl cell phone & hiv/aids care nurse
== END 2024-03-09 11:40 | disposition home or self-care (01) ==
LOC: CATH 06:39
PROVIDERS: Nurse Practitioner Adult Health; ATTENDING PHYSICIAN Internal Medicine Cardiovascular Disease; FAMILY PHYSICIAN Family Medicine; OTHER PHYSICIAN Internal Medicine
DX: I47.29 Other ventricular tachycardia (principal); I47.19 Other supraventricular tachycardia; I45.2 Bifascicular block; E11.9 Type 2 diabetes mellitus without complications; R00.2 Palpitations; I10 Essential (primary) hypertension; E78.5 Hyperlipidemia, unspecified; Z79.4 Long term (current) use of insulin; I25.10 Atherosclerotic heart disease of native coronary artery without angina pectoris; Z95.1 Presence of aortocoronary bypass graft; K58.9 Irritable bowel syndrome, unspecified; Z87.19 Personal history of other diseases of the digestive system; M19.90 Unspecified osteoarthritis, unspecified site; Z87.891 Personal history of nicotine dependence; D53.9 Nutritional anemia, unspecified; N40.0 Benign prostatic hyperplasia without lower urinary tract symptoms; Z96.641 Presence of right artificial hip joint; Z96.652 Presence of left artificial knee joint; Z79.82 Long term (current) use of aspirin; Z79.84 Long term (current) use of oral hypoglycemic drugs; Z88.0 Allergy status to penicillin; Z79.899 Other long term (current) drug therapy; I49.5 Sick sinus syndrome
CPT/HCPCS: 33249; 36415; 71045; 80048; 80053; 82962; 83036; 83735; 85025; 85027; 93005; C1721; C1777; C1892; C1898; Q9967

== ENCOUNTER 2024-04-02 03:49 | Observation (INO) | payer OTHER, SELFPAY ==
[2024-04-01 23:45] VITALS: BP 131/77
[2024-04-01 23:58] VITALS: BP 124/69
--- NOTE | 2024-04-01 23:58 | ED.GENMED ---
History of Present Illness
General
Chief Complaint: AICD Problem
Time Seen by Provider: 04/01/24 23:51
History of Present Illness
History of Present Illness:
78-year-old male with history of CAD status post CABG, and ventricular tachycardia status post AICD placement presents to the emergency department for evaluation of a suspected ICD discharge. Patient states 'it felt like something exploded in my
chest'. He currently feels well and denies complaints. Had no chest pain or shortness of breath preceding the event. He was not exerting himself at that time. Currently denies any dizziness, chest pain, shortness of breath, back pain, or leg
swelling
His daughter notes that after the event she gave him an extra metoprolol as well as losartan
Review of Systems
Review of Systems
Allergies reviewed?: Yes
All Other Systems: ROS reviewed and negative except as documented in HPI and ROS
Phy Exam
Physical Exam
Physical Exam:
GEN: Well appearing, NAD, WDWN
HEENT: Oral mucosa moist, no scleral icterus
Cardiac: Regular rate and rhythm, no murmur
Chest: AICD insertion site well-approximated, clean dry and intact, no palpable hematoma
Lung: No respiratory distress, no tachypnea, lungs clear to auscultation bilaterally
MSK: No gross deformity or injuries
Skin: Good color, no pallor or jaundice, no rashes
Neuro: AO x3, moves all extremities freely
Psych: Calm, cooperative
Course
Orders/Labs/Results
Orders:
Orders
04/01/24 23:57
Electrocardiogram (*1) Urgent
Reason for Study: QTc Monitoring
EKG- Treatment ONCE
Complete Blood Count/No Diff Urgent
Comprehensive Metabolic Panel Urgent
Magnesium Urgent
Troponin I Urgent
04/02/24 00:04
CR Chest - 2 Views Urgent
Comment:
Reason For Exam: chest discomfort
04/02/24 00:12
Ondansetron Injectable [Zofran] 4 mg .ROUTE .STK-MED ONE
04/02/24 00:13
Ondansetron Injectable [Zofran] 4 mg IV NOW STA
04/02/24 01:30
Amiodarone [Cordarone] 150 mg Dextrose 5%/Water 100 ml [D5w] 100 ml IV NOW
04/02/24 01:35
0.9% Sodium Chloride 500 ml [Nss] 500 ml IV BOLUS
Abnormal Lab Results
04/02/24
00:10
WBC 4.5 L 10^3/uL
(4.8-10.8)
Hgb 12.7 L g/dL
(13.0-18.0)
MCH 25.7 L pg
(27.0-31.0)
MCHC 31.8 L g/dL
(33.0-37.0)
Plt Count 126 L 10^3/uL
(130-400)
Carbon Dioxide 32 H mmol/L
(22-30)
Glucose 122 H mg/dl
(70-99)
AST 63 H U/L
(17-59)
04/02/24 00:10
04/02/24 00:10
Vital Signs
Initial and Last Documented VS:
Initial Vital Signs
Temp Pulse Resp BP Pulse Ox
98.3 F 79 18 131/77 99
04/01/24 23:45 04/01/24 23:45 04/01/24 23:45 04/01/24 23:45 04/01/24 23:45
Last Documented Vital Signs
Temp Pulse Resp BP Pulse Ox
98.3 F 80 20 90/53 100
04/01/24 23:45 04/02/24 00:55 04/02/24 00:55 04/02/24 00:55 04/02/24 00:55
MDM/Problems Addressed
MDM/Problems Addressed:
[employer] data reviewed, initial interrogation suggested no events however I discussed via phone with [employer] rep, this occurred as the patient apparently had inadvertently sent a transmission from home shortly after the event so the initial
transmission to us was revealing no new events. Event record shows episode of ventricular dysrhythmia at 2236 treated with a 40 J shock, a subsequent event that occurred shortly thereafter that was not treated. I discussed these findings with
patient's pharmacy messenger Dr. Hollins who recommends IV amiodarone load and admission to telemetry for overnight monitoring, patient can then be started on amiodarone p.o. 200 mg twice daily
*Critical Care Note
Total Time (30-74mins, 75-104mins- exclusive of procedures): Not Applicable
Update Note
Update Note:
04/02/2024 0003 AM: Device interrogation reviewed personally, no shock terminated episodes or arrhythmic episodes within the past 24 hours
ED Attending Note
-
Portions of this chart may have been created with voice recognition software.� Occasional wrong word or��sound alike� substitutions may have occurred due to the inherent limitations of voice recognition software.
Discharge Plan
Departure
Patient Disposition: Admit
Date of Disposition: 04/02/24
Time of Disposition: 01:32
Admit to: Telemetry
Presentation/result/management discussed w/ accepting MD/DO: Hospitalist
Discharge Problem:
Ventricular tachycardia, AICD discharge
Prescriptions:
No Action
aspirin 81 mg Tablet,Delayed Release (Dr/Ec)
81 mg PO DAILY
metformin 1,000 mg Tablet
1,000 mg PO BID
Januvia 100 mg Tablet
100 mg PO QPM
tamsulosin 0.4 mg Capsule
0.4 mg PO QPM
rosuvastatin 40 mg Tablet
40 mg PO QPM
insulin glargine [Lantus Solostar U-100 Insulin] 100 unit/mL (3 mL) Insulin Pen
20 unit SC HS
losartan 25 mg Tablet
25 mg PO DAILY
metoprolol tartrate 50 mg Tablet
50 mg PO BID
ezetimibe 10 mg Tablet
10 mg PO DAILY
Linzess 72 mcg Capsule
72 mcg PO DAILYPRN PRN (Reason: helps with bowels)
Referrals:
UNKNOWN - PT DOES,NOT KNOW [Family Provider] -
Interventions
Interventions:
*Risk Screen - Suicide Last Done: 04/02/24 00:00
*General Assessment Last Done: 04/01/24 23:45
*Neglect/Abuse Screening Last Done: 04/02/24 00:30
ED- Fall Risk Assessment Last Done: 04/02/24 00:00
*ED COVID-19 Vaccine History Last Done: 04/01/24 23:45
ED- Cardiac Assessment Last Done: 04/02/24 00:00
Discharge Date and Time
Print Language: [place] CITIZEN
[2024-04-02] VITALS (16 sets, daily range): BP systolic 90–138; BP diastolic 50–69; PULSE 73–82; BMI 26.3
[2024-04-02] MEDS: ZOFRAN 4 MG IV (00:13)
[2024-04-02 00:30] LABS: Hematocrit 39.9 % (39.0-52.0); Hemoglobin 12.7 g/dL (13.0-18.0); Mean Corp Hgb Conc. 31.8 g/dL (33.0-37.0); Mean Corpuscular Hgb 25.7 pg (27.0-31.0); Mean Corpuscular Volume 80.8 fL (80.0-94.0); Mean Platelet Volume 9.5 fL (7.4-10.4); Platelet Count 126 10^3/uL (130-400); Red Blood Cell Count 4.94 10^6/uL (4.70-6.10); Red Cell Dist. Width 14.1 % (11.5-14.5); White Blood Cell Count 4.5 10^3/uL (4.8-10.8)
[2024-04-02 00:41] LABS: ALT (SGPT) 43 U/L (0-50); AST (SGOT) 63 U/L (17-59); Albumin 4.6 g/dl (3.5-5.0); Alkaline Phosphatase 65 U/L (38-126); Blood Urea Nitrogen 14 mg/dl (9-20); Calcium 9.6 mg/dl (8.4-10.2); Carbon Dioxide 32 mmol/L (22-30); Chloride 99 mmol/L (98-107); Glucose 122 mg/dl (70-99); Magnesium 2.1 mg/dl (1.6-2.3); Potassium 4.6 mmol/L (3.5-5.1); Sodium 136 mmol/L (135-145); Total Protein 7.9 g/dl (6.3-8.2); eGFR > 60.00
[2024-04-02 00:50] LABS: Troponin I 0.024 ng/ml
[2024-04-02 02:27] LABS: Glucose - Point of Care 254 mg/dl (70-99)
[2024-04-02] MEDS: CORDARONE 103 MG IV (02:36)
[2024-04-02] MEDS: NSS 500 IV (02:38)
--- NOTE | 2024-04-02 03:40 | HPS.HSE ---
Family Physician
-
Family Physician: NOT KNOW UNKNOWN - PT DOES
Chief Complaint
-
AICD fired
History of Present Illness
Patient is a 78y M with PMH significant for atrial and ventricular tachycardia s/p recent AICD implantation who presents to ED complaining of AICD firing this evening. Patient underwent placement of AICD on 03/08/24 for complaint of palpitations
and monitor showing atrial tachycardia and ventricular tachycardia. He tolerated that procedure well.
This evening he was feeling well - he denies any chest pain, palpitations, dyspnea, etc.
He was seated on the toilet when he felt a sudden sharp pain in his chest. He states that he may have blacked out briefly.
He felt somewhat short of breath - but this resolved quickly. Patient presented to the ED for further evaluation.
His device was interrogated showing VF episode with a single 40J shock delivered at 22:36.
Patient is currently resting comfortably and has no complaints.
Medical History
Past Medical History
Past Medical History: Reports Other
Additional Past Medical History:
Non-Sustained Ventricular Tachycardia
Atrial Tachycardia
Hypertension
ASCVD
DM-II
IBS
DJD
BPH
Chronic Anemia
Past Surgical History: Reports Other
Additional Past Surgical History:
AICD Placement (03/08/24)
CABG (2022)
Left TKA
Right CHRISTIANA
Social History
Tobacco: Former Smoker (Minimal total use. Quit many years ago.)
Alcohol: Occasional
Drug: None
Family History
Family History: Not pertinent
Allergies / Home Medications
Allergies reflects when Allergies were last updated in [employer].
Home Medications with original date entered in [employer]
Allergy/Medication List:
Allergies
Allergy/AdvReac Type Severity Reaction Status Date / Time
cefuroxime [From Ceftin] Allergy Unknown Verified 03/08/24 07:33
Penicillins Allergy Hives Verified 03/08/24 07:33
Sulfa (Sulfonamide Allergy skin Verified 03/08/24 07:33
Antibiotics) discoloration,
hives
Home Medications
aspirin 81 mg tablet,delayed release 81 mg PO DAILY 04/23/23
insulin glargine 100 unit/mL (3 mL) subcutaneous pen (Lantus Solostar U-100 Insulin) 20 unit SC HS 04/23/23
losartan 25 mg tablet 25 mg PO DAILY 04/23/23
metformin 1,000 mg tablet 1,000 mg PO BID 04/23/23
rosuvastatin 40 mg tablet 40 mg PO QPM 04/23/23
sitagliptin phosphate 100 mg tablet (Januvia) 100 mg PO QPM 04/23/23
tamsulosin 0.4 mg capsule 0.4 mg PO QPM 04/23/23
ezetimibe 10 mg tablet 10 mg PO DAILY 02/16/24
linaclotide 72 mcg capsule (Linzess) 72 mcg PO DAILYPRN PRN helps with bowels 02/16/24
metoprolol tartrate 50 mg tablet 50 mg PO BID 02/16/24
Review of Systems
-
History Source: Patient
A 12 point ROS was completed and negative except as noted: Yes
Constitutional: Denies Fever or Chills
Respiratory: Denies Cough or Trouble Breathing
Cardiac: Denies Chest Pain or Palpitations
Abdomen/GI: Denies Abdominal Pain, Nausea, Vomiting or Diarrhea
: Denies Dysuria
Musculoskeletal: Denies Joint Pain or Edema
Neurological: Denies Dizzy or Headache
Psych: Denies Depression or Anxiety
Physical Exam
Vital Signs
Vital Signs
Temp Pulse Resp BP Pulse Ox
98.3 F 73 15 99/54 96
04/01/24 23:45 04/02/24 03:00 04/02/24 03:00 04/02/24 03:00 04/02/24 03:00
Physical Exam
General: Other (78y M in no acute distress.)
HEENT: Moist mucous membranes and PERRLA
Respiratory: Other (Few rales at the R base. Otherwise clear.)
Cardiac: S1/S2, Regular Rhythm and Other (AICD site L chest healing well. Midline keloid from prior CABG.); No Murmur
GI: Soft, Non Tender, Non Distended and Normal Bowel Sounds
Musculoskeletal: No Clubbing, No Cyanosis and No Edema
Neuro: AO x 3
Laboratory Results
-
04/02/24 00:10
04/02/24 00:10
Laboratory Results
Total Bilirubin 1.0 mg/dl (0.2-1.3) 04/02/24 00:10
AST 63 U/L (17-59) H 04/02/24 00:10
ALT 43 U/L (0-50) 04/02/24 00:10
Alkaline Phosphatase 65 U/L (38-126) 04/02/24 00:10
Troponin I 0.024 ng/ml 04/02/24 00:10
Impression/Plan
-
A/P: Patient is a 78y M with PMH significant for arrhythmias s/p AICD placement who presents to ED for evaluation after AICD discharge this evening.
AICD Discharge
- Observe overnight for further evaluation and treatment.
- Interrogation report indicates episode of VF that was terminated with 40J shock at 22:36 on 04/01/24.
- Monitor on telemetry.
- Follow for any new symptoms / recurrent discharges / etc.
- Cardiology evaluation in the AM.
- Continue current CV med regimen.
ASCVD
- Stable. No chest pain, dyspnea, etc.
- Troponin unremarkable despite recent AICD discharge.
- Continue current CV medications.
- Follow for any new symptoms.
Benign Hypertension
- Stable. Continue OP meds with holding parameters.
DM-II
- Stable. Continue basal insulin. Hold metformin acutely.
- Follow glucose and cover with SSI as needed.
- Update A1C.
BPH
- Stable. Continue tamsulosin.
- Bladder scan protocol.
DVT Prophylaxis: SCDs
Code Status: Full
--- NOTE | 2024-04-02 05:06 | PTCARENOTE ---
Patient arrived from the ED via stretcher. Patient ambulated into the room with assistance. No c/o chest pain or heart palpations. AAOx3, VSS. Pt speaks little [place], from [place]. Patient surgical sites intact. No dizziness or light headedness.
Pt oriented to the room.
[2024-04-02 07:05] LABS: Troponin I 0.025 ng/ml
[2024-04-02 07:07] LABS: Blood Urea Nitrogen 13 mg/dl (9-20); Carbon Dioxide 33 mmol/L (22-30); Chloride 100 mmol/L (98-107); Estimated Creatinine Clearance 70 ml/min; Glucose 125 mg/dl (70-99); Sodium 138 mmol/L (135-145); eGFR > 60.00
[2024-04-02 07:19] LABS: Glucose - Point of Care 117 mg/dl (70-99)
[2024-04-02] MEDS: NOVOLOG FLEXPEN-MODERATE RESISTANCE SC (07:20)
[2024-04-02 07:27] LABS: Hematocrit 33.5 % (39.0-52.0); Hemoglobin 10.8 g/dL (13.0-18.0); Mean Corp Hgb Conc. 32.2 g/dL (33.0-37.0); Mean Corpuscular Hgb 26.1 pg (27.0-31.0); Mean Corpuscular Volume 80.9 fL (80.0-94.0); Red Blood Cell Count 4.14 10^6/uL (4.70-6.10); Red Cell Dist. Width 14.1 % (11.5-14.5); White Blood Cell Count 4.8 10^3/uL (4.8-10.8)
--- NOTE | 2024-04-02 07:32 | CON.CAR ---
Medical History
Allergies / Home Medications
Allergy/AdvReac Type Severity Reaction Status Date / Time
cefuroxime [From Ceftin] Allergy Unknown Verified 03/08/24 07:33
Penicillins Allergy Hives Verified 03/08/24 07:33
Sulfa (Sulfonamide Allergy skin Verified 03/08/24 07:33
Antibiotics) discoloration,
hives
�Medication �Instructions �Recorded �Confirmed �Type
aspirin 81 mg tablet,delayed 81 mg PO DAILY 04/23/23 04/02/24 History
release
insulin glargine 100 unit/mL (3 20 unit SC HS 04/23/23 04/02/24 History
mL) subcutaneous pen (Lantus
Solostar U-100 Insulin)
losartan 25 mg tablet 25 mg PO DAILY 04/23/23 04/02/24 History
metformin 1,000 mg tablet 1,000 mg PO BID 04/23/23 04/02/24 History
rosuvastatin 40 mg tablet 40 mg PO QPM 04/23/23 04/02/24 History
sitagliptin phosphate 100 mg 100 mg PO QPM 04/23/23 04/02/24 History
tablet (Januvia)
tamsulosin 0.4 mg capsule 0.4 mg PO QPM 04/23/23 04/02/24 History
ezetimibe 10 mg tablet 10 mg PO DAILY 02/16/24 04/02/24 History
linaclotide 72 mcg capsule 72 mcg PO DAILYPRN PRN helps with 02/16/24 04/02/24 History
(Linzess) bowels
metoprolol tartrate 50 mg tablet 50 mg PO BID 02/16/24 04/02/24 History
Physical Exam
Vital Signs
Temp Pulse Resp BP Pulse Ox
98.4 F 72 18 90/52 99
04/02/24 05:12 04/02/24 04:45 04/02/24 05:12 04/02/24 04:30 04/02/24 05:30
Lab Results
02/08/25 06:30
04/02/24 06:30
Troponin I 0.025 ng/ml 04/02/24 06:30
Impression / Plan
-
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
VT/VF
-Status post ICD treatment with ATP and shock
-ICD was interrogated and appropriate shock for VT/V-fib.
-Patient was noted to have ventricular ectopy and nonsustained VT in the ER
-Nonsustained VT and abnormal rhythms dissipated with loaded with amiodarone.
-IV amiodarone loaded
-Start amiodarone 400 mg twice a day for 1 week
-Maintenance dose of amiodarone 200 mg twice a day after 1 week of high dose.
-Last echo 06/10/2023: LVEF 60%. Aortic sclerosis without stenosis and ectatic proximal ascending aorta at 3.6 cm.
-Outpatient workup including stress test and an echo.
-Follow-up with cardiology in 2 weeks.
Tachy ismael syndrome/SVT, bradycardia, VT, RBBB/LAFB
-DC ICD implant, 03/08/24
-CXR -ICD leads are stable unchanged.
-stable lead position, no pneumothorax
Coronary artery disease /NC
-Status post CABG and left atrial appendage clip (2022, at OSH)
-Appears stable without any ongoing ischemia.
-Workup as an outpatient with stress test and echo
- stable and continue aspirin, losartan, metoprolol
HLD- continue high dose rosuvastatin
HTN- soft BP post- low 100s-120
-continue meds, no adjustment to BB at this time- re-eval in office
DM- HgbA1C 8.0%- on lantus, januvia
-Followup with PCP for managment/insulin adjustment
Data Reviewed
-
EKG: Tracing Personally Visualized and interpreted, Report Reviewed by me, Discussed with Physician, Discussed with Nurse, Discussed with Patient and Discussed with Family
Radiology: Image Personally Visualized and interpreted, Report Reviewed by me and Discussed with Physician
Medical Tests (Nuc Med, Echo etc): Image Personally Visualized and interpreted and Report Reviewed by me
Labs: Labs Reviewed by me, Discussed with Physician, Discussed with Nurse, Discussed with Patient and Discussed with Family
Old Records: Reviewed
[2024-04-02 07:37] LABS: TSH Reflex To Free T4 1.86 uIU/ml (0.47-4.68)
--- NOTE | 2024-04-02 07:41 | W.PN.HOSP.TC ---
Today's Communication/Plan
-
AICD Discharge
- ekg reviewed this morning- NSR, LAD RBBB, no changes
- Interrogation report indicates episode of VF that was terminated with 40J shock at 22:36 on 04/01/24.
- Monitor on telemetry.
- No recurrent discharges
- Cardiology evaluation pending-appreciate their recs
- Continue current CV med regimen.
#Anemia
-check FOBT
Assessment / Plan
Assessment / Plan
Patient is a 78y M with PMH significant for arrhythmias s/p AICD placement who presented to ED for evaluation after AICD discharge this evening:
AICD Discharge
- ekg reviewed this mornin- NSR, LAD RBBB, no changes
- Interrogation report indicates episode of VF that was terminated with 40J shock at 22:36 on 04/01/24.
- Monitor on telemetry.
- No recurrent discharges
- Cardiology evaluation pending-appreciate their recs
- Continue current CV med regimen.
Anemia
-hgb 10.8 today
-no active bleeding
-MCV 80.9
-check FOBT
ASCVD
- Stable. CP free
- Troponin 0.024 >> 0.025 despite recent AICD discharge.
- Continue current CV medications.
Benign Hypertension, BP low 90/52
- Stable. Continue OP meds with holding parameters.
DM-II
- Stable. Continue basal insulin. Hold metformin acutely.
- Follow glucose and cover with SSI as needed.
- Update A1C.
BPH
- Stable. Continue tamsulosin.
- Bladder scan protocol.
DVT Prophylaxis: SCDs
Code Status: Full
Anticipated Discharge: Within 24 hours
Subjective/Interval History
-
Date of Service: April 02, 2024
No shocks overnight. No acute events overnight. No CP, no SOB, no n/v/d. Afebrile. They are checking orthostatics.
Objective Data
-
Labs:
Laboratory Results
04/02/24 04/02/24
00:10 06:30
WBC 4.5 L 4.8
Hgb 12.7 L 10.8 L
Hct 39.9 33.5 L
Plt Count 126 L Pending
Sodium 136 138
Potassium 4.6 5.0
Chloride 99 100
Carbon Dioxide 32 H 33 H
BUN 14 13
Creatinine 0.7 0.7
Glucose 122 H 125 H
Calcium 9.6 9.0
Total Bilirubin 1.0
AST 63 H
ALT 43
Alkaline Phosphatase 65
Vital Signs:
Vital Signs
Temp Pulse Resp BP Pulse Ox
98.4 F 72 18 90/52 99
04/02/24 05:12 04/02/24 04:45 04/02/24 05:12 04/02/24 04:30 04/02/24 05:30
I&O
04/01/24 04/02/24 04/03/24
06:59 06:59 06:59
Output Total 250 / 250
Balance -250 / -250
Review of Systems
-
History Source: Patient
All other systems: Reviewed and negative
Physical Exam
-
General: Well Developed, Well Nourished, No Apparent Distress and Comfortable
HEENT: Normocephalic, Atraumatic and Moist Mucous Membranes
Cardiac: Regular Rhythm and S1/S2
GI: Soft, Nontender and Nondistended
Musculoskeletal: No Clubbing, No Cyanosis and No Edema
Skin: Warm and Dry
Neuro: AO x 3 and No Motor Deficits
Psych: Calm
Data Reviewed
-
Medical Tests (Nuc Med, Echo etc): Image personally visualized and interpreted (eKG without changes, no ischemic changes) and Report Reviewed by me
Labs: Labs Reviewed by me
[2024-04-02] MEDS: ZETIA 10 MG PO (08:36)
[2024-04-02] MEDS: ASPIR LOW (ENTERIC COATED) 81 MG PO (08:36)
[2024-04-02] MEDS: PACERONE 400 MG PO (08:37)
[2024-04-02] MEDS: LOPRESSOR 50 MG PO (08:37)
[2024-04-02 09:11] LABS: Platelet Count 92 10^3/uL (130-400)
[2024-04-02 11:15] LABS: Troponin I 0.028 ng/ml
[2024-04-02 13:04] LABS: Glucose - Point of Care 225 mg/dl (70-99)
[2024-04-02] MEDS: NOVOLOG FLEXPEN-MODERATE RESISTANCE 3 UNITS SC (14:06)
[2024-04-02] MEDS: TESSALON PERLES 100 MG PO (15:23)
[2024-04-02] MEDS: PREVNAR 20 0.5 ML IM (16:18)
--- NOTE | 2024-04-02 16:31 | CM ---
[place]uvian speaking patient with Dx AICD Discharge.
Spoke with patient and daughter with nurse assisting;
the patient resides with his in a 1 story house with 2 PE[address]A.
He has been independent in ADLs and ambulation.
The patient has no DME or prior VN.
Patient says he is ready for d/c and is here to transport him home.
No CM d/c needs identified.
Plan home today.
--- NOTE | 2024-04-02 19:04 | W.DCSUMMARY ---
Discharge Summary
Discharge Data
Date of Admission: 04/02/24
Date of Discharge: 04/02/24
Total time spent discharging patient (in min): 35 minutes
-
Pending Results: No
Hospital Course
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
complaining of AICD firing this evening. His device was interrogated showing VF episode with a single 40J shock delivered at 22:36.
He was admitted to the hospital for further cardiac evaluation and Cardiology consultation.
The patient was seen by Cardiology. He was loaded with IV Amiodarone, and started on Amiodarone 400 mg BID for 1 week, followed by 200 mg BID. He remained hemodynamically stable, and respiratory status remained stable. Cardiology recommended the
patient be discharged for outpatient echocardiogram and stress test, and followo-up in 2 weeks. He was continued on aspirin, losartan, and metoprolol. Tessalon Perles were initiated at the patient request due to mild URI symptoms.
Hgb 10.8 was noted on laboratory, with no active bleeding, and stable hemodynamics. He received IV fluids, and this may in part be dilutional. Normal MCV. The plan is for follow up with his primary care physician, in 2 weeks, to complete an
outpatient work-up. He will follow up with Cardiology in 2 weeks as well.
He is discharged in improved and stable condition.
Discharge Plan
-
Patient Disposition: Home (Routine Discharge)
Discharge Diagnosis/Procedures: AICD discharge, ventricular tachycardia causing your AICD to discharge
Condition: Good
Diet: Low Cholesterol
Activity: No restrictions
Driving Restrictions: As prior to admission
Bathing Restrictions: None
Specialty Instructions: Weigh Daily- Call MD for wt gain/loss 3 lbs overnight/5 lbs in 1 week
Activity Restrictions/Additional Instructions:
Follow up with your primary care doctor in 2 weeks
Follow up with your Technical Designer in 2 weeks
Referrals:
Michael Hollins MD [Active] - in two weeks (For AICD fired, stress test , and echocardiogram)
UNKNOWN - PT DOES,NOT KNOW [Family Provider] -
Additional Discharge Medication Instructions: New medications:
Start Amiodarone 400 mg twice a day for 1 week
Then-Maintenance dose of Amiodarone 200 mg twice a day after the first week of high dose.
Follow up with Cardiology for refills (2 week f/u need). You are discharged with a 1 month supply.
Prescriptions:
New
amiodarone 200 mg Tablet
400 mg PO BID Qty: 28 0RF
Rx Instructions:
Take 400 mg (2 tabs) twice a day by mouth for one week, followed by 200 mg (1 tablet) twice a day.
amiodarone 200 mg tablet
200 mg PO BID Qty: 42 0RF
Rx Instructions:
Take 1 tablet twice a day after 1 week of the high dose amiodarone (400 mg twice a day)
benzonatate 100 mg capsule
100 mg PO TID PRN (Reason: cough/sore throat) Qty: 15 0RF
Continued
aspirin 81 mg Tablet,Delayed Release (Dr/Ec)
81 mg PO DAILY
metformin 1,000 mg Tablet
1,000 mg PO BID
Januvia 100 mg Tablet
100 mg PO QPM
tamsulosin 0.4 mg Capsule
0.4 mg PO QPM
rosuvastatin 40 mg Tablet
40 mg PO QPM
insulin glargine [Lantus Solostar U-100 Insulin] 100 unit/mL (3 mL) Insulin Pen
20 unit SC HS
losartan 25 mg Tablet
25 mg PO DAILY
metoprolol tartrate 50 mg Tablet
50 mg PO BID
ezetimibe 10 mg Tablet
10 mg PO DAILY
Linzess 72 mcg Capsule
72 mcg PO DAILYPRN PRN (Reason: helps with bowels)
Discharge Orders:
Discharge Patient (As Directed); Ordered 04/02/24
Ordered By: Valencia Stone
Discharge Date and Time
Discharge Date/Time: 04/02/24 16:58
Print Language: U[place]
== END 2024-04-02 16:58 | disposition home or self-care (01) ==
LOC: 4 EAST ACU 03:49
PROVIDERS: Physician Assistant; ADMITTING PHYSICIAN Hospitalist; ATTENDING PHYSICIAN Internal Medicine; CONSULT PHYSICIAN Internal Medicine Cardiovascular Disease; EMERGENCY PHYSICIAN Student in an Organized Health Care Education/Training Program
DX: I47.19 Other supraventricular tachycardia (principal); R07.89 Other chest pain; I25.10 Atherosclerotic heart disease of native coronary artery without angina pectoris; I47.20 Ventricular tachycardia, unspecified; D64.9 Anemia, unspecified; N40.0 Benign prostatic hyperplasia without lower urinary tract symptoms; K58.9 Irritable bowel syndrome, unspecified; E78.5 Hyperlipidemia, unspecified; J98.4 Other disorders of lung; E11.9 Type 2 diabetes mellitus without complications; I10 Essential (primary) hypertension; I70.0 Atherosclerosis of aorta; I49.3 Ventricular premature depolarization; I49.01 Ventricular fibrillation; I25.2 Old myocardial infarction; Z95.1 Presence of aortocoronary bypass graft; Z95.810 Presence of automatic (implantable) cardiac defibrillator; Z79.82 Long term (current) use of aspirin; Z79.84 Long term (current) use of oral hypoglycemic drugs; Z79.4 Long term (current) use of insulin; Z87.891 Personal history of nicotine dependence; Z88.1 Allergy status to other antibiotic agents; Z88.2 Allergy status to sulfonamides; Z88.0 Allergy status to penicillin; Z96.652 Presence of left artificial knee joint; Z96.641 Presence of right artificial hip joint; Z23 Encounter for immunization
CPT/HCPCS: 93261; 71046; 80048; 80053; 82962; 83735; 84443; 84484; 85027; 90677; 93005; 93289; 96361; 96374; 96375; 99285; G0009; G0378

== ENCOUNTER → 2024-04-30 09:06 | Outpatient (REF) | payer OTHER, SELFPAY | LOC: RCS 09:06 | PROVIDERS: ATTENDING PHYSICIAN Internal Medicine; FAMILY PHYSICIAN Family Medicine | DX: I25.810 Atherosclerosis of coronary artery bypass graft(s) without angina pectoris (principal); Z45.02 Encounter for adjustment and management of automatic implantable cardiac defibrillator | CPT/HCPCS: 93306 ==

== ENCOUNTER → 2024-07-07 13:45 | Outpatient (REF) | payer OTHER, SELFPAY | LOC: RAD 13:45 | PROVIDERS: ATTENDING PHYSICIAN Family Medicine | DX: R09.89 Other specified symptoms and signs involving the circulatory and respiratory systems (principal) | CPT/HCPCS: 71046 ==

== ENCOUNTER 2024-07-14 15:27 | Inpatient (IN) | payer OTHER, SELFPAY ==
[2024-07-14] VITALS (23 sets, daily range): BP systolic 109–154; BP diastolic 67–95
[2024-07-14 12:23] LABS: % Basophils 0.4 % (0-2); % Eosinophils 4.3 % (0-6); % Immature Granulocytes 0.2 % (0-0.5); % Lymphocytes 36.3 % (20.5-51.1); % Monocytes 8.8 % (1.7-9.3); Absolute Eosinophils 0.2 10^3/uL (0-0.7); Absolute Lymphocytes 1.7 10^3/uL (1.2-3.4); Absolute Monocytes 0.4 10^3/uL (0.1-0.6); Absolute Neutrophils 2.3 10^3/uL (1.4-6.5); Hematocrit 36.7 % (39.0-52.0); Hemoglobin 11.4 g/dL (13.0-18.0); Mean Corp Hgb Conc. 31.1 g/dL (33.0-37.0); Mean Corpuscular Hgb 25.4 pg (27.0-31.0); Mean Corpuscular Volume 81.7 fL (80.0-94.0); Mean Platelet Volume 9.8 fL (7.4-10.4); Nucleated Red Blood Cells % 0 % (-); Platelet Count 148 10^3/uL (130-400); Red Blood Cell Count 4.49 10^6/uL (4.70-6.10); Red Cell Dist. Width 15.6 % (11.5-14.5); White Blood Cell Count 4.7 10^3/uL (4.8-10.8)
--- NOTE | 2024-07-14 12:55 | ED.GENMED ---
History of Present Illness
General
Chief Complaint: Chest Problem
Time Seen by Provider: 07/14/24 12:28
History of Present Illness
History of Present Illness:
70-year-old male presents the emergency department for evaluation of dizziness associated with a sensation of a shock in his chest. He is concern for a discharge of his AICD. Currently feels well except for mild lightheadedness. Denies any chest
pain or shortness of breath at present. He notes that his last amiodarone prescription was not refilled and thus he has not taken it in some time
Review of Systems
Review of Systems
Allergies reviewed?: Yes
All Other Systems: ROS reviewed and negative except as documented in HPI and ROS
Phy Exam
Physical Exam
Physical Exam:
GEN: Well appearing, NAD, WDWN
HEENT: Oral mucosa moist, no scleral icterus
Cardiac: Regular rate and rhythm, no murmurs
Lung: No respiratory distress, no tachypnea
MSK: No gross deformity or injuries
Skin: Good color, no pallor or jaundice, no rashes
Neuro: AO x3, moves all extremities freely
Psych: Calm, cooperative
Course
Orders/Labs/Results
Orders:
Orders
07/14/24 Lunch
2000 calorie (17 carb) Diabetic
At Your Request: Full Participation
07/14/24 11:55
Electrocardiogram (*1) Urgent
Reason for Study: Chest Pain
07/14/24 11:56
EKG- Treatment ONCE
07/14/24 12:07
Complete Blood Count/With Diff Urgent
Comprehensive Metabolic Panel Urgent
Glycohemoglobin (HgbA1c) Urgent
Magnesium Urgent
Comment: ADD ON
Troponin I Urgent
07/14/24 12:37
Add On- LAB Urgent
Tests Added?: magnesium
07/14/24 13:16
Amiodarone [Pacerone] 400 mg PO NOW STA
07/14/24 13:22
Amiodarone [Cordarone] 150 mg Dextrose 5%/Water 100 ml [D5w] 100 ml IV NOW
07/14/24 13:30
Amiodarone [Cordarone] 900 mg DEXTROSE 5% PVC-free BAG [D5W PVC-free BAG] 500 ml IV PER PROTOCOL
Initial Dose in mg/min:: 1
Duration of initial dose (hours):: 6
Subsequent dose in mg/min:: 0.5
Duration of subsequent dose (hours):: 18
Maximum dose in mg/min:: 1
Hold and notify provider if:: Heart rate < 60 BPM or SBP < 90 mmHg or MAP < 60 mmHg
07/14/24 13:59
Admit/Transfer Patient As Directed
Co-Sign Provider:
Level of Care: Inpatient admission
Assign to:: IVU
Physician / Group: jo ann sorensen
Diagnosis: AICD discharge
Reason for Hospitalization: AICD discharge
Expected length of stay greater than two midnights?: Yes
ELOS- Estimated Length of Stay in days: 2
I certify the patient meets the requirements for IP care: Yes
07/14/24 14:00
PRN Pain Medication Management As Directed
May give lesser potent ordered pain med per pt: Yes
preference::
Protocol:: Medication orders for pain may be administered in a
manner that supports deferring to patient preference
when the pt is:
- Requesting an ordered lesser potent pain medication.
Least to most potent pain medications are defined
as: acetaminophen < NSAID < tramadol < opioids
(morphine, oxycodone, hydromorphone).
- Requesting a lesser dose of the same medication IF
ORDERED.
- Requesting a less intrusive route of administration
if both routes are prescribed by the provider (PO <
IV).
07/14/24 14:02
Code Status As Directed
Resuscitation Status: Full Code
07/14/24 17:20
Acetaminophen [Tylenol] 650 mg PO Q4HPRN PRN
Dextrose 50%-Water [Dextrose 50% Syringe] 12.5 grams IV [id number] PRN
Glucagon [GlucaGen] 1 mg IM PRN PRN
Insulin Aspart Corrective Mod [Novolog Flexpen-Moderate Resistance] See Protocol SC AC
Oxycodone [Roxicodone] 5 mg PO Q4HPRN PRN
07/14/24 17:20
Add On- LAB Routine
Tests Added?: HgbA1C to today's lab
CARDIOLOGY CONSULT Routine
Consulting Provider: Michael Hollins
Was physician already notified: Yes
Activity As Directed
Activity Level: Ambulate
Bedside Glucose Monitoring As Directed
Frequency: AC&HS
Additional Instructions:: Change to q6h if pt on TPN, tube feeding or not eating
Vital Signs As Directed
Frequency: Per unit guidelines
DX Deep Vein Thrombosis Video Routine
07/14/24 18:00
Enoxaparin Sodium [Lovenox] 40 mg SC QPM
METFORMIN HCl [Glucophage] 1,000 mg PO BID AT 0800,1700
Rosuvastatin Calcium [Crestor] 40 mg PO QPM
Sitagliptin Phosphate [Januvia] 100 mg PO QPM
Tamsulosin [Flomax] 0.4 mg PO QPM
07/14/24 20:00
Amiodarone [Pacerone] 400 mg PO BID
Metoprolol [Lopressor] 50 mg PO BID
07/14/24 22:00
Mirtazapine [Remeron] 7.5 mg PO HS
insulin glargine [Lantus Solostar U-100 Insulin] 20 unit SC HS
07/15/24 06:00
Echo 2D MMode Color/Doppler IN AM
Reason for Study: VT, ICD shock
07/15/24 08:00
Aspirin Low Dose EC [Aspir Low (Enteric Coated)] 81 mg PO DAILY
Ezetimibe [Zetia] 10 mg PO DAILY
Losartan [Cozaar] 25 mg PO DAILY
Abnormal Lab Results
07/14/24
12:07
WBC 4.7 L 10^3/uL
(4.8-10.8)
RBC 4.49 L 10^6/uL
(4.70-6.10)
Hgb 11.4 L g/dL
(13.0-18.0)
Hct 36.7 L %
(39.0-52.0)
MCH 25.4 L pg
(27.0-31.0)
MCHC 31.1 L g/dL
(33.0-37.0)
RDW 15.6 H %
(11.5-14.5)
Carbon Dioxide 32 H mmol/L
(22-30)
Glucose 143 H mg/dl
(70-99)
07/14/24 12:07
07/14/24 12:07
Vital Signs
Initial and Last Documented VS:
Initial Vital Signs
Temp Pulse Resp BP Pulse Ox
98.1 F 87 16 137/79 98
07/14/24 11:56 07/14/24 11:56 07/14/24 11:56 07/14/24 11:56 07/14/24 11:56
Last Documented Vital Signs
Temp Pulse Resp BP Pulse Ox
98.1 F 85 16 131/83 97
07/14/24 11:56 07/14/24 18:00 07/14/24 18:00 07/14/24 18:00 07/14/24 18:03
MDM/Problems Addressed
MDM/Problems Addressed:
Episode of V-fib requiring an ICD shock most likely due to amiodarone noncompliance. Patient will be loaded on amiodarone and admitted to the hospital for further intensive monitoring
*Critical Care Note
Total Time (30-74mins, 75-104mins- exclusive of procedures): Not Applicable
ED Attending Note
-
Portions of this chart may have been created with voice recognition software.� Occasional wrong word or��sound alike� substitutions may have occurred due to the inherent limitations of voice recognition software.
Discharge Plan
Departure
Patient Disposition: Admit
Date of Disposition: 07/14/24
Time of Disposition: 13:20
Admit to: Telemetry
Presentation/result/management discussed w/ accepting MD/DO: Hospitalist
Discharge Problem:
Ventricular fibrillation, AICD discharge
Interventions
Interventions:
*Risk Screen - Suicide Last Done: 07/14/24 11:56
*General Assessment Last Done: 07/14/24 13:00
*Neglect/Abuse Screening Last Done: 07/14/24 11:56
*ED- Fall Risk Assessment Last Done: 07/14/24 12:39
*ED COVID-19 Vaccine History Last Done: 07/14/24 12:39
ED- Cardiac Assessment Last Done: 07/14/24 13:00
ED- Pulmonary Assessment Last Done: 07/14/24 13:00
--- NOTE | 2024-07-14 13:03 | CON.CAR ---
Addendum entered and electronically signed by Wilfredo Alegria MD 07/14/24 14:57:
I saw and examined the patient.
The POWER SUPERINTENDENT's note was reviewed and I agree with the note.
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 Post-ICD placement, he had he had VF on 04/22/24 with ICD shock he was started on amiodarone. Today he had an ICD shock
for VT. He had run outof meds and was not taking amiodarone and metoprolol. Currently comfortable with No CP or SOB
- VT and ICD shock in patient with known VT/VF who ran out antiarrythmic medication as noted above
- IV amiodarone with plans to then transition back to oral
- resume metoprolol
- repeat echo
Original Note:
Consultation
Consultation Request
Date/Time Consultation Requested: 07/14/24 1249
Date/Time Consultation Performed: 07/14/24 1304
Requesting Provider: Baljeet CAPPS
Performing Provider: Nancy MELO for Dr. Alegria
Reason for Consultation: VT with ICD shock
Medical History
-
Chief Complaint: device shock
History of Present Illness:
78 y/o male (patient of Dr. 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 Post-ICD placement, he had he had VF
on 04/22/24 with ICD shock. He was initiated on amiodarone. He is back since ICD shocked him again this AM. He has had some SOB and dizziness. He looks well at the time of my assessment. Of note, he ran out of amiodarone a while ago, so has not been
taking. He also sounds to have run out of metoprolol about 3 days ago.
Past Medical History
Past Medical History: Arrhythmias, CAD, HTN, Hypercholesterolemia and NIDDM
Social History
Tobacco: Former Smoker
Family History
Family History: Reviewed & Not Pertinent
Allergies / Home Medications
Allergy/AdvReac Type Severity Reaction Status Date / Time
cefuroxime [From Ceftin] Allergy Unknown Verified 07/14/24 11:56
Penicillins Allergy Hives Verified 07/14/24 11:56
Sulfa (Sulfonamide Allergy skin Verified 07/14/24 11:56
Antibiotics) discoloration,
hives
Med list not yet updated by pharmacy- BB/anibal notes as above
�Medication �Instructions �Recorded �Confirmed �Type
aspirin 81 mg tablet,delayed 81 mg PO DAILY Blood Clot 04/23/23 04/02/24 History
release Prevention/Tx
insulin glargine 100 unit/mL (3 20 unit SC HS Diabetes 04/23/23 04/02/24 History
mL) subcutaneous pen (Lantus
Solostar U-100 Insulin)
losartan 25 mg tablet 25 mg PO DAILY Blood Pressure 04/23/23 04/02/24 History
metformin 1,000 mg tablet 1,000 mg PO BID Diabetes 04/23/23 04/02/24 History
rosuvastatin 40 mg tablet 40 mg PO QPM High Cholesterol 04/23/23 04/02/24 History
sitagliptin phosphate 100 mg 100 mg PO QPM Diabetes 04/23/23 04/02/24 History
tablet (Januvia)
tamsulosin 0.4 mg capsule 0.4 mg PO QPM Urinary Issue 04/23/23 04/02/24 History
ezetimibe 10 mg tablet 10 mg PO DAILY High Cholesterol 02/16/24 04/02/24 History
linaclotide 72 mcg capsule 72 mcg PO DAILYPRN PRN helps with 02/16/24 04/02/24 History
(Linzess) bowels
metoprolol tartrate 50 mg tablet 50 mg PO BID Blood Pressure has not been taking in past few days
benzonatate 100 mg capsule 100 mg PO TID PRN cough/sore 04/02/24 Rx
throat #15 caps
Review of Systems
-
History Source: Patient
All other systems: Negative unless noted
Respiratory: Trouble Breathing
Cardiac: Other (shock)
Neurological: Dizzy
Physical Exam
Vital Signs
Temp Pulse Resp BP Pulse Ox
98.1 F 98 22 154/76 98
07/14/24 11:56 07/14/24 12:30 07/14/24 12:30 07/14/24 12:30 07/14/24 12:39
Lab Results
07/14/24 12:07
Troponin I 0.030 ng/ml 07/14/24 12:07
Physical Exam
General: Well Developed, Well Nourished and No Apparent Distress
HEENT: Normocephalic and Anicteric
Respiratory: Clear and Non Labored Respirations
Cardiac: Regular Rhythm
Musculoskeletal: No Edema
Skin: Warm and Dry
Neuro: AO x 3
Psych: Calm
Impression / Plan
-
Device shock, Ventricular tachycardia:
-this diagnosis is threat to life
-reviewed with EP Dr. Hollins- patient had 3 failed ATP, then shock for VT (942) followed by VT treated with ATP (951). VT was 200 BPM.
-patient has been off amiodarone for a while, and also sounds to have been off metoprolol for past 3 days (ran out of medicines)
-load with IV amiodarone, which requires intensive monitoring, resume BB
-update echo
CAD with Hx CABG:
-surgery in [place] 2022, specifics unknown
-continue ASA, statin, resume BB
-echo in AM
HTN:
-monitor with medicine adjustments
Data: Dede stress test 03/01/24- Negative ECG for ischemia given the pharmacological study. Abnormal study. Perfusion imaging reveals a small area of mildly to moderately decreased perfusion that is fixed in the basal interolateral, mid
inferolateral, and apical lateral driver consistent with infarction. Systolic function is normal. The ejection fraction is 72%. Stress Risk is moderate risk study (1 - 3% [place] or /year) due to pharmacologic agent used.
Data Reviewed
-
EKG: Tracing Personally Visualized and interpreted (SR with PAC's, RBBB, LAD 91 BPM)
Radiology: Report Reviewed by me (CXR: Low lung volumes with mild bibasilar scarring/atelectasis, similar compared to the prior study.)
Medical Tests (Nuc Med, Echo etc): Report Reviewed by me (Echo 04/30/24: EF 55-60%. No regional wall motion abnormalities are seen. Normal right ventricular size and function. Moderately dilated left atrium. Aortic sclerosis without stenosis. Mild to
moderate tricuspid regurgitation. Estimated pulmonary artery pressure of 25-30 mmHg.)
Labs: Labs Reviewed by me
[2024-07-14 13:12] LABS: ALT (SGPT) 19 U/L (0-50); AST (SGOT) 29 U/L (17-59); Albumin 4.5 g/dl (3.5-5.0); Alkaline Phosphatase 53 U/L (38-126); Blood Urea Nitrogen 16 mg/dl (9-20); Calcium 9.7 mg/dl (8.4-10.2); Carbon Dioxide 32 mmol/L (22-30); Chloride 103 mmol/L (98-107); Glucose 143 mg/dl (70-99); Magnesium 2.2 mg/dl (1.6-2.3); Potassium 4.3 mmol/L (3.5-5.1); Sodium 141 mmol/L (135-145); Total Bilirubin 0.7 mg/dl (0.2-1.3); Total Protein 7.5 g/dl (6.3-8.2); eGFR > 60.00
--- NOTE | 2024-07-14 13:43 | HPS.HSE ---
Family Physician
-
Family Physician: Haris Marie DO
Chief Complaint
-
AICD discharge
History of Present Illness
78-year-old male with a past medical history of atrial and ventricular tachycardia status post AICD 03/08/2024 who presents with 1 episodes of shock from his AICD discharge this morning. Patient reports waking up this morning, and using the
bathroom. While using the bathroom, he felt a shock in his chest from his AICD. Associated symptoms include dizziness, intermittent palpitations, and shortness of breath. He reports his symptoms have resolved currently. Patient is supposed to be
taking amiodarone 200 mg daily at home. He ran out a few days ago. He may have also ran out of his metoprolol. No fever, no vomiting.
Medical History
Past Medical History
Past Medical History: Reports Other
Additional Past Medical History:
Non-Sustained Ventricular Tachycardia
Atrial Tachycardia
Hypertension
ASCVD
DM-II
IBS
DJD
BPH
Chronic Anemia
Past Surgical History: Reports Other
Additional Past Surgical History:
AICD Placement (03/08/24)
CABG (2022)
Left TKA
Right CHRISTIANA
Social History
Tobacco: Former Smoker (Minimal total use. Quit many years ago.)
Alcohol: Occasional
Drug: None
Family History
Family History: Not pertinent
Allergies / Home Medications
Allergies reflects when Allergies were last updated in [employer].
Home Medications with original date entered in [employer]
Allergy/Medication List:
Allergies
Allergy/AdvReac Type Severity Reaction Status Date / Time
cefuroxime [From Ceftin] Allergy Unknown Verified 07/14/24 11:56
Penicillins Allergy Hives Verified 07/14/24 11:56
Sulfa (Sulfonamide Allergy skin Verified 07/14/24 11:56
Antibiotics) discoloration,
hives
Home Medications Table - record
�Medication �Instructions �Recorded �Confirmed
aspirin 81 mg tablet,delayed 81 mg PO DAILY Blood Clot 04/23/23 07/14/24
release Prevention/Tx
insulin glargine 100 unit/mL (3 20 unit SC HS Diabetes 04/23/23 07/14/24
mL) subcutaneous pen (Lantus
Solostar U-100 Insulin)
losartan 25 mg tablet 25 mg PO DAILY Blood Pressure 04/23/23 07/14/24
metformin 1,000 mg tablet 1,000 mg PO BID Diabetes 04/23/23 07/14/24
rosuvastatin 40 mg tablet 40 mg PO QPM High Cholesterol 04/23/23 07/14/24
sitagliptin phosphate 100 mg 100 mg PO QPM Diabetes 04/23/23 07/14/24
tablet (Januvia)
tamsulosin 0.4 mg capsule 0.4 mg PO QPM Urinary Issue 04/23/23 07/14/24
ezetimibe 10 mg tablet 10 mg PO DAILY High Cholesterol 02/16/24 07/14/24
metoprolol tartrate 50 mg tablet 50 mg PO BID Blood Pressure 02/16/24 07/14/24
amiodarone 200 mg tablet 200 mg PO DAILY 07/14/24 07/14/24
insulin lispro 100 unit/mL 4 sliding scale dose SC AC 07/14/24 07/14/24
subcutaneous solution
mirtazapine 7.5 mg tablet 7.5 mg PO HS 07/14/24 07/14/24
semaglutide 0.25 mg or 0.5 mg (2 0.5 mg SC QUINN 07/14/24 07/14/24
mg/1.5 mL) subcutaneous pen
injector (Ozempic)
Review of Systems
-
A 12 point ROS was completed and negative except as noted: Yes
Physical Exam
Vital Signs
Vital Signs
Temp Pulse Resp BP Pulse Ox
98.1 F 98 22 154/76 98
05/22/25 11:56 07/14/24 12:30 07/14/24 12:30 07/14/24 12:30 07/14/24 12:39
Physical Exam
General: Well Developed, Well Nourished and No Apparent Distress
HEENT: NormoCephalic, Anicteric and Moist mucous membranes
Respiratory: Clear
Cardiac: S1/S2 and Regular Rhythm
GI: Soft, Non Tender and Non Distended
Musculoskeletal: No Clubbing, No Cyanosis and No Edema
Skin: Warm and Dry
Neuro: Awake, Alert and Oriented
Laboratory Results
-
07/14/24 12:07
07/14/24 12:07
Laboratory Results
Total Bilirubin 0.7 mg/dl (0.2-1.3) 07/14/24 12:07
AST 29 U/L (17-59) 07/14/24 12:07
ALT 19 U/L (0-50) 07/14/24 12:07
Alkaline Phosphatase 53 U/L (38-126) 07/14/24 12:07
Troponin I 0.030 ng/ml 07/14/24 12:07
Impression/Plan
-
#Intermittent ventricular tachycardia with AICD shock
Per Dr. Hollins, patient had 3 failed ATP, then shock for VT (942) followed by VT treated with ATP (951). VT was 200 BPM.
Appreciate cardiology input, recommend loading with IV amiodarone, followed by amiodarone 400 mg p.o. twice daily
Continue metoprolol tartrate 50 mg twice a day, repeat echocardiogram
#CAD status post CABG
Continue aspirin, statin, Zetia, metoprolol, losartan
#Essential hypertension
Continue losartan 25 mg daily, metoprolol tartrate 50 mg twice a day
#Type 2 diabetes
Hold home Ozempic
Continue glargine 20 units at bedtime, lispro 4 units AC 3 times daily, Januvia, sliding scale insulin
#Hyperlipidemia
Continue statin and Zetia
#BPH
Continue Flomax
DVT prophylaxis�subcu Lovenox
Full code
Updated daughter on phone 07/14
Total time spent to see the patient on the floor, examine the patient, review data and lab results, discuss treatment plan with patient, nursing staff around 65 minutes.
[2024-07-14] MEDS: CORDARONE 103 MG IV (13:46)
[2024-07-14] MEDS: PACERONE 400 MG PO (13:46)
[2024-07-14] MEDS: CORDARONE 518 MG IV (13:58)
--- NOTE | 2024-07-14 16:03 | W.CARD.DEVCH ---
Cardiac Device Check
-
Device: Implanted Cardioverter-Defibrillator
Dock Loader: [employer]
The patient's device was interrogated with assistance of the device textile machinery sales representative followed by a complete physician review. The device had normal function. No abnormalities seen.
Patient had sustained VT that waas treated with ATP x3 but not able to convert. He was eventually treated with shock. The VT was 198 bpm. ICD is set at 188 bpm to treat.
He had another episode of VT afterwards and was treated with ATP and was able to convert to sinus with ATP after the shock.
[2024-07-14 18:15] LABS: Glucose - Point of Care 105 mg/dl (70-99)
[2024-07-14] MEDS: LOVENOX 40 MG SC (18:16)
[2024-07-14] MEDS: CRESTOR 40 MG PO (18:17)
[2024-07-14] MEDS: JANUVIA 100 MG PO (18:17)
[2024-07-14] MEDS: FLOMAX 0.4 MG PO (18:17)
[2024-07-14] MEDS: GLUCOPHAGE 1000 MG PO (18:17)
[2024-07-14] MEDS: LOPRESSOR 50 MG PO (20:17)
[2024-07-14 22:07] LABS: Glucose - Point of Care 143 mg/dl (70-99)
[2024-07-14] MEDS: REMERON 7.5 MG PO (22:07)
[2024-07-14] MEDS: LANTUS 0.2 UNITS SC (22:07)
[2024-07-15] VITALS (15 sets, daily range): BP systolic 100–164; BP diastolic 59–83; BMI 23.4
[2024-07-15 06:59] LABS: Hematocrit 38.6 % (39.0-52.0); Hemoglobin 12.2 g/dL (13.0-18.0); Mean Corp Hgb Conc. 31.6 g/dL (33.0-37.0); Mean Corpuscular Hgb 25.7 pg (27.0-31.0); Mean Corpuscular Volume 81.4 fL (80.0-94.0); Platelet Count 148 10^3/uL (130-400); Red Blood Cell Count 4.74 10^6/uL (4.70-6.10); Red Cell Dist. Width 15.5 % (11.5-14.5); White Blood Cell Count 4.1 10^3/uL (4.8-10.8)
[2024-07-15 07:21] LABS: Blood Urea Nitrogen 16 mg/dl (9-20); Calcium 9.9 mg/dl (8.4-10.2); Carbon Dioxide 31 mmol/L (22-30); Chloride 105 mmol/L (98-107); Estimated Creatinine Clearance 54 ml/min; Glucose 109 mg/dl (70-99); Potassium 4.9 mmol/L (3.5-5.1); Sodium 142 mmol/L (135-145); eGFR > 60.00
[2024-07-15 07:53] LABS: Glucose - Point of Care 120 mg/dl (70-99)
[2024-07-15] MEDS: ASPIR LOW (ENTERIC COATED) 81 MG PO (07:56)
[2024-07-15] MEDS: LOPRESSOR 50 MG PO (07:57)
[2024-07-15] MEDS: ZETIA 10 MG PO (07:57)
[2024-07-15] MEDS: GLUCOPHAGE 1000 MG PO ×2 (07:57→17:11)
[2024-07-15] MEDS: COZAAR 25 MG PO (07:57)
[2024-07-15 08:46] LABS: Glucose - Point of Care 101 mg/dl (70-99)
--- NOTE | 2024-07-15 09:23 | W.PN.HOSP.TC ---
Today's Communication/Plan
-
Cleared by cardiology for discharge today
Assessment / Plan
Assessment / Plan
HPI: 78-year-old male with a past medical history of atrial and ventricular tachycardia status post AICD 03/08/2024 who presents with 1 episodes of shock from his AICD discharge this morning. Patient reports waking up this morning, and using the
bathroom. While using the bathroom, he felt a shock in his chest from his AICD. Associated symptoms include dizziness, intermittent palpitations, and shortness of breath. He reports his symptoms have resolved currently. Patient is supposed to be
taking amiodarone 200 mg daily at home. He ran out a few days ago. He may have also ran out of his metoprolol. No fever, no vomiting.
#Intermittent ventricular tachycardia with AICD shock
Per Dr. Hollins, patient had 3 failed ATP, then shock for VT (942) followed by VT treated with ATP (951). VT was 200 BPM.
Echo pending
Appreciate cardiology input, status post loading with IV amiodarone, now on amiodarone 400 mg p.o. twice daily
Continue metoprolol tartrate 50 mg twice a day
Cleared by cardiology for discharge on amiodarone 400 mg twice a day for 2 weeks, then 200 mg daily
New prescription provided
#CAD status post CABG
Continue aspirin, statin, Zetia, metoprolol, losartan
#Essential hypertension
Continue losartan 25 mg daily, metoprolol tartrate 50 mg twice a day
#Type 2 diabetes
Hold home Ozempic
Continue glargine 20 units at bedtime, lispro 4 units AC 3 times daily, Januvia, sliding scale insulin
#Hyperlipidemia
Continue statin and Zetia
#BPH
Continue Flomax
DVT prophylaxis�subcu Lovenox
Full code
Physical Exam
General: No acute distress
HEENT: Normocephalic, Atraumatic, EOMI, MMM
Respiratory: Clear to Auscultation bilaterally
Cardiac: Normal S1/S2, Regular Rate and Rhythm
GI: Soft, Nontender, Nondistended, Normal Bowel Sounds
Extremities: No Clubbing, Cyanosis, or Edema
Neuro: Nonfocal/Grossly Intact
Psych: Calm, Cooperative
Derm: No Visible lesions
Anticipated Discharge: Today
Subjective/Interval History
-
Date of Service: July 15, 2024
No recurrence of palpitations or dizziness. No chest pain, shortness of breath. No fever, no vomiting.
Objective Data
-
Labs:
Laboratory Results
07/15/24
06:27
WBC 4.1 L
Hgb 12.2 L
Hct 38.6 L
Plt Count 148
Sodium 142
Potassium 4.9
Chloride 105
Carbon Dioxide 31 H
BUN 16
Creatinine 0.9
Glucose 109 H
Calcium 9.9
Vital Signs:
Vital Signs
Temp Pulse Resp BP Pulse Ox
98.1 F 67 20 110/64 97
07/14/24 11:56 07/15/24 07:45 07/15/24 07:45 07/15/24 07:00 07/15/24 00:27
I&O
07/14/24 07/15/24 07/16/24
06:59 06:59 06:59
Output Total 800 / 800
Balance -800 / -800
[2024-07-15 09:46] LABS: Glycohemoglobin (HgbA1c) 7.3 % (4.0-5.6)
--- NOTE | 2024-07-15 11:27 | W.PN.CD ---
Today's Communication / Plan
-
switch IV Amiodarone to PO 400mg BID x 2 weeks then 200mg daily.
continue Lopressor 50mg BID.
outpatient f/u Dr. Ulloa 08/19/24 at 1:40pm [facility].
Impression / Plan
-
Device shock, Ventricular tachycardia:
-this diagnosis is threat to life
-reviewed with EP Dr. Hollins- patient had 3 failed ATP, then shock for VT (942) followed by VT treated with ATP (951). VT was 200 BPM.
-patient has been off amiodarone for a while, and also off metoprolol for past 3 days (ran out of medicines).
-loaded with IV amiodarone, which requires intensive monitoring, will switch to PO Amiodarone 400mg BID x 2 weeks then decrease to 200mg daily.
-resumed Lopressor 50mg BID.
-echo report pending.
CAD with Hx CABG:
-surgery in [place] 2022, specifics unknown.
-continue ASA, statin, resume BB.
-echo report pending.
HTN:
-chronic, stable.
-monitor with medicine adjustments
Data: Dede stress test 03/01/24- Negative ECG for ischemia given the pharmacological study. Abnormal study. Perfusion imaging reveals a small area of mildly to moderately decreased perfusion that is fixed in the basal interolateral, mid
inferolateral, and apical lateral driver consistent with infarction. Systolic function is normal. The ejection fraction is 72%. Stress Risk is moderate risk study (1 - 3% [place] or /year) due to pharmacologic agent used.
Physical Exam
Vital Signs/Labs
Vital Signs
Temp Pulse Resp BP Pulse Ox
98.1 F 67 16 103/62 97
07/14/24 11:56 07/15/24 10:30 07/15/24 10:30 07/15/24 10:00 07/15/24 00:27
0507/15/24 07/16/24
06:59 06:59 06:59
Actual Weight 154 lb 5.177 oz
07/15/24 06:27
07/15/24 06:27
Magnesium 2.2 mg/dl (1.6-2.3) 07/14/24 12:07
LAB Results
07/14/24
12:07
Troponin I 0.030
Physical Exam
Constitutional: No acute distress and Comfortable
EENT: Anicteric and Moist mucous membranes
Cardiovascular: Rhythm & rate is regular
Respiratory: Respiratory effort normal and Lungs clear to auscul.
GI: Soft, Distention absent, Non tender and Normal bowel sounds
Neuro/Psych: AO x 3
Other: Skin (warm, dry) and Cardiac Device Site (intact)
Data Reviewed
-
Date of Service: July 15, 2024
EKG: Tracing Personally Visualized and interpreted
Echo: Report Reviewed by me
Labs: Labs Reviewed by me
Old Records: Reviewed
[2024-07-15] MEDS: PACERONE 400 MG PO (12:06)
[2024-07-15 12:09] LABS: Glucose - Point of Care 111 mg/dl (70-99)
--- NOTE | 2024-07-15 15:00 | PTCARENOTE ---
patient transferred to [facility] via stretcher from ER and now has discharge for home. patient denies pain or complaints, independent, remains NSR with BBC, vss, oriented to new room and use of call miller, will continue to monitor.
--- NOTE | 2024-07-15 16:03 | CM ---
Patient seen at bedside
IA completed
IMM explained & signed. In chart
Explained CM role
Patient lives with in a 1 story home, 2 steps to enter
PLOF: Independent, no assistive device
Denies DME
denies vn/rehab in past in [place] (after surgery 2 yrs ago)
PCP: Haris Marie
Pharmacy: [address], [place]
PLAN: Home, no needs
to transport
[2024-07-15 16:56] LABS: Glucose - Point of Care 140 mg/dl (70-99)
[2024-07-15] MEDS: JANUVIA 100 MG PO (17:11)
[2024-07-15] MEDS: FLOMAX 0.4 MG PO (17:14)
[2024-07-15] MEDS: CRESTOR 40 MG PO (17:14)
--- NOTE | 2024-07-15 17:54 | W.DCSUMMARY ---
Discharge Summary
Discharge Data
Date of Admission: 07/14/24
Date of Discharge: 07/15/24
-
Pending Results: No
Hospital Course
Discharge diagnosis:
Intermittent ventricular tachycardia with automatic intracardiac defibrillator shock
Coronary artery disease status post coronary artery bypass graft surgery
Essential hypertension
Type 2 diabetes
Hyperlipidemia
Benign prostatic hypertrophy
Consults: Cardiology
Echo:
Normal biventricular size and systolic function without regional wall motion
abnormality. LVEF 55-60%.
Aortic sclerosis.
Mild mitral regurgitation.
Moderate tricuspid regurgitation. PASP 33 mmHg.
No significant change compared to prior echocardiogram on 04/30/2024.
Hospital course:
78-year-old male with a past medical history of atrial and ventricular tachycardia status post AICD 03/08/2024 who was admitted for intermittent ventricular tachycardia with AICD shock. Patient ran out of his amiodarone and possibly his metoprolol.
It is unclear how long he has not been taking these medications. He was seen in conjunction with cardiology. He was loaded with IV amiodarone, and continued on metoprolol tartrate 50 mg twice a day. He did not have any recurrence of ventricular
tachycardia. He is medically stable and cleared by cardiology for discharge on amiodarone 400 mg twice a day for 2 weeks, then 200 mg daily. He is to continue his metoprolol tartrate. New prescriptions have been sent. He needs to follow-up with
his usual captain's assistant in the office in 2-3 weeks, and his primary care doctor in 1 week.
Disposition: Home self-care
Discharge planning: Required 37 minutes
Discharge Plan
-
Patient Disposition: Home (Routine Discharge)
Discharge Diagnosis/Procedures: Ventricular tachycardia causing AICD discharge
Condition: Fair
Diet: Diabetic, Carb Controlled
Activity: As tolerated
Driving Restrictions: As prior to admission
Activity Restrictions/Additional Instructions:
It is very important that you take your amiodarone and metoprolol as directed.
Notify your family physician if you need a refill right away.
Cardiology recommends taking amiodarone 400mg twice a day for 2 weeks then 200mg daily.
Referrals:
Shayne Ulloa MD [Active] - 08/19/24 1:40 pm
Haris Marie DO [Family Provider] - in one week
Prescriptions:
Continued
aspirin 81 mg Tablet,Delayed Release (Dr/Ec)
81 mg PO DAILY
metformin 1,000 mg Tablet
1,000 mg PO BID
Januvia 100 mg Tablet
100 mg PO QPM
tamsulosin 0.4 mg Capsule
0.4 mg PO QPM
rosuvastatin 40 mg Tablet
40 mg PO QPM
insulin glargine [Lantus Solostar U-100 Insulin] 100 unit/mL (3 mL) Insulin Pen
20 unit SC HS
losartan 25 mg Tablet
25 mg PO DAILY
ezetimibe 10 mg Tablet
10 mg PO DAILY
insulin lispro 100 unit/mL Solution
4 sliding scale dose SC AC
mirtazapine 7.5 mg Tablet
7.5 mg PO HS
Ozempic 0.25 mg or 0.5 mg(2 mg/1.5 mL) Pen Injector
0.5 mg SC QUINN
Rx Instructions:
for 4 weeks
metoprolol tartrate 50 mg Tablet
50 mg PO BID Qty: 60 0RF
Changed
amiodarone 200 mg tablet
See Rx Instructions .ROUTE .COMPLEX Qty: 120 0RF
Rx Instructions:
2 tabs BID x2 weeks, then 1 tab daily
Discharge Orders:
Discharge Patient (As Directed); Ordered 07/15/24
Ordered By: Max Diez
Discharge Date and Time
Discharge Date/Time: 07/15/24 17:54
Print Language: PANAMANIAN
== END 2024-07-15 17:54 | disposition home or self-care (01) | DRG 310 ==
LOC: 3 WEST ACU 15:27
PROVIDERS: Internal Medicine Cardiovascular Disease; Nurse Practitioner Gerontology; ADMITTING PHYSICIAN Family Medicine; EMERGENCY PHYSICIAN Emergency Medicine; FAMILY PHYSICIAN Family Medicine; OTHER PHYSICIAN Internal Medicine Cardiovascular Disease
PROC: 4B02XTZ Measurement of Cardiac Defibrillator, External Approach (ICD-10-PCS; 2024-07-14)
DX: I47.20 Ventricular tachycardia, unspecified (principal); Z95.810 Presence of automatic (implantable) cardiac defibrillator; E11.9 Type 2 diabetes mellitus without complications; N40.0 Benign prostatic hyperplasia without lower urinary tract symptoms; I47.19 Other supraventricular tachycardia; I25.10 Atherosclerotic heart disease of native coronary artery without angina pectoris; K58.9 Irritable bowel syndrome, unspecified; M19.90 Unspecified osteoarthritis, unspecified site; Z95.1 Presence of aortocoronary bypass graft; Z96.652 Presence of left artificial knee joint; Z87.891 Personal history of nicotine dependence; Z88.0 Allergy status to penicillin; Z88.2 Allergy status to sulfonamides; Z79.82 Long term (current) use of aspirin; I70.0 Atherosclerosis of aorta; I07.1 Rheumatic tricuspid insufficiency; Z79.84 Long term (current) use of oral hypoglycemic drugs; Z79.4 Long term (current) use of insulin; Z79.899 Other long term (current) drug therapy; I10 Essential (primary) hypertension; E78.00 Pure hypercholesterolemia, unspecified; D64.9 Anemia, unspecified
CPT/HCPCS: 80048; 80053; 82962; 83036; 83735; 84484; 85025; 85027; 93005; 93306; 96374; 96375; 99285